=== PATIENT | female | born 1945 | race Caucasian/White ===

== ENCOUNTER → 2017-07-21 13:58 | Outpatient (CLI) | payer MEDICARE, OTHER ==
[2016-04-05 16:58] VITALS: BMI 29.1
[~2017-07-21 13:58] MED LIST: ASPIRIN EC81 M1 PO; BENADRYL25 MG PO; COLACE100 MG PO; DULCOLAX10 MG/SUPP RC; ELIQUIS2.5 MG PO; FERATE240 ( 27 ) OR; HYDROCODONE-APA1 TAB PO; LIPITOR10 MG PO; MIRALAX17 GM PO; MS CONTIN15 MG PO; OXYCODONE HCL5 MG PO; SENNA8.6 MG OR; SENNA8.6 MG PO; SENOKOT-S TABLE1 TAB PO; VITAMIN D250000 UNIT PO
== END | disposition home or self-care (01) ==
LOC: D.MRI 13:58
DX: M79.672 Pain in left foot (principal)

== ENCOUNTER 2017-12-28 06:01 | Outpatient (CLI) | payer MEDICARE, OTHER ==
[~2017-12-28] VITALS: Ht 167.6 cm; Wt 75.0 kg
--- NOTE | ~2017-12-28 | HEMODYNAMI ---
PATIENT:DAVIN NAGEL MEDICAL RECORD: [id number] : 49 LOCATION:[facility] ADMISSION DATE: 12/28/17 Generatedon:12/28/20178:25 Patient name: DAVIN NAGEL Patient #: [id number] SSN: : 1945 Date of study: 12/28/2017 Page: Of Hemodynamic Procedure Report Patient Data Patient Demographics Procedure consent was obtained First Name: DAVIN Gender: Female Last Name: SHONA : 1945 [facility] Initial: BETTIE Age: 72 year(s) Patient #: [id number] Race: Unknown Additional ID: [id number] Contact details [address]: [address] [place] [address] State: [place] City: [place] Zip code: [address] Past Medical History Allergies Allergen Reaction Date Comments Reported Other allergy 12/28/2017 doxycycline Statins 12/28/2017 Demerol 12/28/2017 Admission Admission Data Admission Date: 12/28/2017 Admission Time: 6:01 Procedure Procedure Types Cath Procedure Diagnostic Procedure LHC Coronaries only Aortic Root Angiography Sedation Charges Moderate Sedation up to 15 minutes Procedure Description Procedure Date Procedure Date: 12/28/2017 Procedure Start Time: 8:00 Procedure End Time: 8:23 Procedure Staff Name Function Elier East MD Performing Physician Shital Rice RT Monitor Arturo Oliver RN Nurse Cammie El RT Scrub Procedure Data Cath Procedure Fluoroscopy Diagnostic fluoroscopy Total fluoroscopy Time: 5.9 time: 5.9 min min Diagnostic fluoroscopy Total fluoroscopy dose: 707 dose: 707 mGy mGy Contrast Material Contrast Material Type Amount (ml) Isovue 370 99 Entry Location Entry Primary Successful Side Size Upsize Upsize Entry Closure Succes sful Closure Location (Fr) 1 (Fr) 2 (Fr) Remarks Device Remarks Femoral Right 5 Fr Exoseal artery Estimated blood loss: 5 ml Diagnostic catheters Device Type Used For End Catheter Placement MULTIPACK JL 4.0 5Fr Left Coronary catheter Angiography MULTIPACK 3DRC 5Fr Right Coronary catheter Angiography MULTIPACK Pigtail 5 Fr Aortic Root catheter Angiography DIAGNOSTIC AL 1 5Fr Procedure catheter ([id number]) Procedure Complications No complications Procedure Medications Medication Administration Route Dosage 0.9% NaCl I.V. 100 ml/hr Oxygen etCO2 Nasal cannula 2 l/min Heparin Flush Bag added to field 2 bags (1000units/500ml NS) Lidocaine 2% added to field 20 Versed I.V. 1 mg Fentanyl I.V. 50 mcg Benadryl I.V. 50 mg Versed I.V. 1 mg Fentanyl I.V. 50 mcg Versed I.V. 1 mg Hemodynamics Rest Heart Rate: 74 (bpm) Snapshots Pre Cath Intra NCS Post Cath Vital Signs Time Heart Resp SPO2 etCO2 NIBP (mmHg) Rhythm Pain Sedation Rate (ipm) (%) (mmHg) Status Level (bpm) 7:46:08 77 20 98 0 133/74(107) NSR 0 (11) 10(A) , No pain 7:50:50 74 12 93 33.6 136/66(87) NSR 0 (11) 10(A) , No pain 7:55:35 73 15 89 0 110/50(75) NSR 0 (11) 10(A) , No pain 8:00:14 71 14 98 36.6 111/53(81) NSR 0 (11) 10(A) , No pain 8:04:50 80 14 98 23.9 119/60(82) NSR 0 (11) 10(A) , No pain 8:09:29 81 14 96 38.1 118/61(88) NSR 0 (11) 9(A) , No pain 8:14:07 82 16 95 38.1 108/63(90) NSR 0 (11) 9(A) , No pain 8:18:44 98 15 99 36.6 115/67(91) NSR 0 (11) 9(A) , No pain 8:23:20 81 14 99 36.6 129/66(100) NSR 0 (11) 9(A) , No pain Medications Time Medication Route Dose Verified Delivered Reason Notes Effe ctiveness by by 7:51:22 0.9% NaCl I.V. 100 Arturo Arturo Per ml/hr Benito Oliver physician RN RN 7:51:31 Oxygen etCO2 2 Arturo Arturo Per Nasal l/min Lorigan Lorigan physician cannula RN RN 7:51:41 Heparin Flush added 2 Arturo Arturo used for Bag to bags Lorigan Lorigan procedure (1000units/500ml field RN RN NS) 7:51:52 Lidocaine 2% added 20ml Arturo Arturo for local to vial Lorigan Lorigan anesthetic field RN RN 7:52:04 Versed I.V. 1 mg Arturo Arturo for Lorigan Lorigan sedation RN RN 7:52:16 Fentanyl I.V. 50 Arturo Arturo for mcg Lorigan Lorigan sedation RN RN 7:52:26 Benadryl I.V. 50 mg Arturo Arturo Per Lorigan Lorigan physician RN RN 8:01:33 Versed I.V. 1 mg Arturo Arturo for Lorigan Lorigan sedation RN RN 8:01:38 Fentanyl I.V. 50 Arturo Arturo for mcg Lorigan Lorigan sedation RN RN 8:03:24 Versed I.V. 1 mg Arturo Arturo for Lorigan Lorigan sedation RN locomotive electrician Log Time Note 7:33:22 Time tracking: Regular hours (M-F 7:00 - 5:00) 7:33:26 Plan of Care:Hemodynamics will remain stable., Cardiac rhythm will remain stable., Comfort level will be maintained., Respiratory function will remain adequate., Patient/ family verbilizes understanding of procedure., Procedure tolerated without complication., Recovers from procedure without complications.. 7:33:29 Arturo Oliver RN sent for patient. Start room use. 7:39:10 Patient received from Pre/Post Procedure Room to CCL 1 Alert and oriented. Tansferred to table in Supine position. 7:39:11 Warm blankets applied, and lakhwinder hugger turned on for patient comfort. 7:39:12 Correct patient and procedure confirmed by team. 7:39:15 Signed procedure consent form obtained from patient. 7:39:15 ECG and BP/O2 sat monitors applied to patient. 7:39:16 Full Disclosure recording started 7:45:17 Vital chart was started 7:46:12 Rhythm: sinus rhythm 7:46:14 Baseline sample Acquired. 7:46:26 H&P Date Dictated: 12/19/2017 Within 30 days and on chart., H&P Addendum completed by physician on day of procedure. (MUST COMPLETE FOR ALL OUTPATIENTS). 7:46:27 Pre-procedure instructions explained to patient. 7:46:28 Pre-op teaching completed and patient verbalized understanding. 7:46:29 Family in patients room. 7:46:37 Patient NPO since Midnight. 7:46:53 Patient allergic to Other allergydoxycycline 7:46:59 Patient allergic to Statins 7:47:05 Patient allergic to Demerol 7:47:08 Is the patient allergic to Iodine/contrast media? No. 7:47:10 Is patient on blood thinner?No 7:47:13 Patient diabetic? No. 7:47:17 Previous problem with sedation/anesthesia? No ? 7:47:18 Snore? No 7:47:19 Sleep apnea? No 7:47:21 Deviated septum? No 7:47:22 Opens mouth fully? Yes 7:47:22 Sticks out tongue? Yes 7:47:24 Airway obstruction? No ? 7:47:25 Dentures? No ? 7:47:34 Pre procedure: right dorsailis pedis pulse 2+ Normal; easily identifiable; not easily obliterated 7:47:39 Pre procedure: right radial pulse 0-Absent 7:47:44 Patient pain scale 0/10 ?. 7:47:48 Lab results completed and on chart. 7:47:55 IV patent on arrival in right forearm with 0.9% NaCl at O. 7:47:57 Right groin area was prepped with chlora-prep and draped in sterile fashion 7:47:58 Alarms reviewed by R. N. 7:47:58 Sharps counted by scrub and verified by R.N. 7:48:01 Use device set Femoral Dx 7:48:02 ACIST Syringe (35102) opened to sterile field. 7:48:02 Bag Decanter (2002) opened to sterile field. 7:48:03 Medline Cath Pack ([id number]) opened to sterile field. 7:48:03 DIAGNOSTIC WIRE .035 260cm J wire (182461) opened to sterile field. 7:48:04 ACIST Hand Control (36766) opened to sterile field. 7:48:04 ACIST Manifold (60618) opened to sterile field. 7:48:05 DIAGNOSTIC Multipack 5Fr catheter set ([id number]) opened to sterile field. 7:48:06 Tegaderm 4 x 4 (1626W) opened to sterile field. 7:48:07 PERCUTANEOUS ENTRY 19GA needle opened to sterile field. 7:48:08 SHEATH Prelude 5Fr 0.035 ([id number]-9X-99-035) opened to sterile field. 7:49:42 Final Timeout: patient, procedure, and site verified with staff and physician. All members of the team are in agreement. 7:49:44 Right groin site verified by team. 7:49:48 Physical assessment completed. ASA score P 2 - A patient with mild systemic disease as per Elier East MD. 7:49:53 Sedation plan: IV Moderate Sedation Medication:Versed, Fentanyl 7:51:22 0.9% NaCl 100 ml/hr I.V. was administered by Arturo Oliver RN; Per physician; 7:51:31 Oxygen 2 l/min etCO2 Nasal cannula was administered by Arturo Oliver RN; Per physician; 7:51:41 Heparin Flush Bag (1000units/500ml NS) 2 bags added to field was administered by Arturo Oliver RN; used for procedure; 7:51:52 Lidocaine 2% 20ml vial added to field was administered by Arturo Oliver RN; for local anesthetic; 7:52:04 Versed 1 mg I.V. was administered by Arturo Oliver RN; for sedation; 7:52:16 Fentanyl 50 mcg I.V. was administered by Arturo Oliver RN; for sedation; 7:52:26 Benadryl 50 mg I.V. was administered by Arturo Oliver RN; Per physician; 7:54:20 Zero performed for pressure channel P1 8:00:28 Procedure started. 8:00:56 Local anesthetic to right femoral artery with Lidocaine 2% by Elier East MD.INITIAL ACCESS ONLY 8:01:33 Versed 1 mg I.V. was administered by Arturo Oliver RN; for sedation; 8:01:38 Fentanyl 50 mcg I.V. was administered by Arturo Oliver RN; for sedation; 8:03:24 Versed 1 mg I.V. was administered by Arturo Oliver RN; for sedation; 8:03:38 A 5 Fr sheath was inserted into the Right Femoral artery 8:04:19 A MULTIPACK JL 4.0 5Fr catheter was advanced over the wire and used for Left Coronary Angiography. 8:06:39 Catheter removed. 8:07:35 A MULTIPACK 3DRC 5Fr catheter was advanced over the wire and used for Right Coronary Angiography. 8:08:39 Catheter removed. 8:09:16 A MULTIPACK Pigtail 5 Fr catheter was advanced over the wire and used for Aortic Root Angiography. 8:10:12 Injector settings: Ml/sec: 15, Volume: 30, 8:14:12 BENTSON 260 wire ([id number]) opened to sterile field. 8:15:15 A DIAGNOSTIC AL 1 5Fr catheter ([id number]) was advanced over the wire and used for Procedure. to cross Aortic valve 8:15:27 Bentson wire advanced. 8:17:53 Catheter removed. 8:18:12 UNABLE TO CROSS VALVE 8:18:20 Sheath removed intact; hemostasis achieved with Exoseal to the Right Femoral artery. 8:18:21 Procedure ended.(Physican Out) 8:18:33 Fluoroscopy time 05.90 minutes. 8:18:37 Fluoroscopy dose: 707 mGy 8:18:37 Flurop Dose total: 707 8:18:40 Contrast amount:Isovue 370 99ml. 8:18:42 Sharps counted by scrub and verified by R.N. 8:18:45 Insertion/operative site no bleeding no hematoma. 8:18:48 Post-op/insertion site Right Femoral artery dressed using a 4 x 4 and Tegaderm. 8:18:51 Post right femoral artery:stable, clean and dry 8:18:53 Post Procedure Pulses reassessed and unchanged 8:18:55 Post-procedure physical assessment completed. ASA score P 2 - A patient with mild systemic disease as per Elier East MD. 8:18:57 Post procedure rhythm: unchanged. 8:19:00 Estimated blood loss: 5 ml 8:19:02 Post procedure instruction explained to patient.Patient verbalizes understanding. 8:19:02 Patient needs reinforcement of post procedure teaching. 8:19:51 Procedure type changed to Cath procedure, Diagnostic procedure, LHC, Coronaries only, Aortic Root Angiography, Sedation Charges, Moderate Sedation up to 15 minutes 8:20:00 Procedure Complication : No complications 8:20:01 See physician's report for complete and final results. 8:20:06 EXOSEAL 5Fr (EX500) opened to sterile field. 8:22:52 Procedure and supply charges have been captured, reviewed, submitted and are correct. 8:22:53 Vital chart was stopped 8:22:55 Report given to Pre/Post Procedure Room. 8:22:58 Patient transfered to Pre/Post Procedure Room with Stretcher. 8:23:05 Procedure ended. 8:23:05 Full Disclosure recording stopped 8:23:08 End room use (Document Last) Device Usage Item Name Manufacture Quantity Catalog Number Hospital Part Current M inimal Lot# / Charge Number Stock Stock Serial# Code ACIST Syringe Acist 1 12722 371848 344605 701282 2 0 (50818) Medical Systems One-Song Bag Decanter Microtek 1 2001S 489300 21343 173624 5 () Medical Inc. Medline Cath Cardinal 1 [id number] 087338 86661 612060 5 Pack Health ([id number]) DIAGNOSTIC WIRE [place] 1 488810 673848 624914 803606 3 0 .035 260cm J wire (327405) ACIST Hand Acist 1 28627 962806 577277 553604 5 Control (22196) Medical Systems Inc ACIST Manifold Acist 1 35671 025981 944995 872993 5 (81950) Medical Systems Inc DIAGNOSTIC Cardinal 1 MS5228 029013 69451 716028 3 0 Multipack 5Fr Health catheter set (MZ8914) Tegaderm 4 x 4 3M 1 1626W 030616 062058 673716 5 (1626W) PERCUTANEOUS Cook Medical 1 W66945 205650 514351 5 ENTRY 19GA needle SHEATH Prelude Merit 1 BNK-0K-25-035 387872 730440 781311 5 5Fr 0.035 Medical (VZO-7E-05-035) MULTIPACK JL Cardinal 1 354266 5 4.0 5Fr Health catheter MULTIPACK 3DRC Cardinal 1 605732 5 5Fr catheter Health MULTIPACK Cardinal 1 245608 5 Pigtail 5 Fr Health catheter BENTSON 260 Cook Medical 1 K91553 730278 412819 906169 5 wire (S00023) DIAGNOSTIC AL 1 Cardinal 1 [id number] 706133 199604 500461 1 5 5Fr catheter Health (638703Q) EXOSEAL 5Fr Cardinal 1 EX500 156504 460702 935661 1 0 (EX500) Health Signature Audit Converse Stage Time Signature Unsigned Intra-Procedure 12/28/2017 Shital 8:25:15 AM Counts RT(R) Signatures Monitor : Shital Signature : Counts RT Date : Time : [address] [place] [address]
[2017-12-28 06:27] VITALS: BP 135/81; Ht 167.6 cm; Wt 75.0 kg
[2017-12-28 06:46] LABS: BASOPHILS 0.9 % (0-2); EOSINOPHILS 3.6 % (0-7); HEMATOCRIT 42.7 % (36.0-48.0); HEMOGLOBIN 14.5 g/dL (12-16); LYMPHOCYTES 20.5 % (15-50); MCH 30.7 pg (26.0-34.0); MCV 90.3 fL (80.0-100.0); MEAN PLATELET VOLUME 12.4 fL (7.4-10.4); MONOCYTES 8.3 % (2-11); NEUTROPHILS 66.7 % (40-80); RBC 4.73 10x6/uL (4.00-5.40); WBC 5.8 10x3/uL (4.8-10.8)
[2017-12-28 06:49] LABS: PLATELET COUNT 190 10x3/uL (130-400)
[2017-12-28 06:59] LABS: CALC OSMOLALITY 284 mosm/kg (275-300); CARBON DIOXIDE 25.3 mmol/L (21.0-32.0); CHLORIDE - SERUM 106 mmol/L (98-107); CREATININE - SERUM 0.8 mg/dL (0.6-1.3); GLUCOSE 107 mg/dL (74-106); POTASSIUM - SERUM 4.1 mmol/L (3.5-5.1); SODIUM 141 mmol/L (136-145); UREA NITROGEN 24 mg/dL (7-18); eGFR NON AFRICAN AMERICAN 75 mL/min (90-120)
== END 2017-12-28 11:05 | disposition home or self-care (01) ==
LOC: D.CATH 06:01
PROVIDERS: Internal Medicine Cardiovascular Disease
DX: I35.0 Nonrheumatic aortic (valve) stenosis (principal)

== ENCOUNTER 2018-01-09 05:00 | Inpatient (IN) | payer MEDICARE, OTHER ==
[2018-01-05 09:35] LABS: BASOPHILS 0.6 % (0-2); EOSINOPHILS 2.7 % (0-7); HEMATOCRIT 42.6 % (36.0-48.0); HEMOGLOBIN 14.6 g/dL (12-16); IMMATURE GRANULOCYTES 0.1 % (0-5); LYMPHOCYTES 20.3 % (15-50); MCH 30.5 pg (26.0-34.0); MCHC 34.3 g/dL (31.0-37.0); MCV 89.1 fL (80.0-100.0); MEAN PLATELET VOLUME 12.3 fL (7.4-10.4); MONOCYTES 6.2 % (2-11); NEUTROPHILS 70.1 % (40-80); PLATELET COUNT 212 10x3/uL (130-400); RBC 4.78 10x6/uL (4.00-5.40); RDW 13.7 % (11.5-14.5); WBC 6.9 10x3/uL (4.8-10.8)
[2018-01-05 09:45] LABS: APPEARANCE CLEAR (CLEAR); APTT 31.1 SECONDS (22.8-39.4); BILIRUBIN NEGATIVE (NEGATIVE); COLOR YELLOW (YELLOW); GLUCOSE NEGATIVE (NEGATIVE); INR 0.99 (0.85-1.17); KETONE NEGATIVE (NEGATIVE); NITRITE NEGATIVE (NEGATIVE); PROTEIN NEGATIVE (NEGATIVE); PROTIME 12.7 SECONDS (11.6-15.0); SPECIFIC GRAVITY 1.015 (1.005-1.020); UROBILINOGEN NORMAL (NORMAL)
[2018-01-05 10:16] LABS: ALBUMIN 3.8 g/dL (3.4-5.0); ALKALINE PHOSPHATASE 128 U/L (46-116); ALT (SGPT) 21 U/L (10-68); BILIRUBIN - TOTAL 0.34 mg/dL (0.2-1.3); CALC OSMOLALITY 279 mosm/kg (275-300); CALCIUM 9.5 mg/dL (8.5-10.1); CARBON DIOXIDE 31.9 mmol/L (21.0-32.0); CHLORIDE - SERUM 103 mmol/L (98-107); CHOLESTEROL, TOTAL 224 mg/dL (0-200); CREATININE - SERUM 0.8 mg/dL (0.6-1.3); GLUCOSE 101 mg/dL (74-106); PHOSPHOROUS 4.4 mg/dL (2.5-4.9); POTASSIUM - SERUM 3.8 mmol/L (3.5-5.1); PROTEIN - SERUM 8.4 g/dL (6.4-8.2); SODIUM 140 mmol/L (136-145); T4 THYROXIN - FREE 0.88 ng/dL (0.76-1.46); THYROID STIMULATING HORMONE 2.01 uIU/mL (0.36-3.74); UREA NITROGEN 16 mg/dL (7-18); URIC ACID 3.9 mg/dL (2.6-7.2); eGFR NON AFRICAN AMERICAN 75 mL/min (90-120)
[2018-01-09] VITALS (52 sets, daily range): BP systolic 83–128; BP diastolic 29–73; BMI 26.7; BMI 29.1
[~2018-01-09] VITALS: Ht 167.6 cm; Wt 79.5 kg
--- NOTE | ~2018-01-09 | HP ---
PATIENT: DAVIN NAGEL MEDICAL RECORD: [id number] ACCOUNT: [id number] LOCATION:[facility] : 49 ADMISSION DATE: 01/09/18 HISTORY AND PHYSICAL EXAMINATION DAVIN Ledezma (72yo, F) ID# [id number]. Date/Time01/03/2018 10:63FBTKP67/1948[facility] Dept.[facility] ClinicProviderGATITO YU MDInsuranceMed Primary: [place] Insurance # : [id number] PCP : ARLETTE BECERRA Referring Provider Name : ARLETTE BECERRA Employer Name : RETIRED Med Secondary: CYNDIE (MEDICARE SUPPLEMENT) Insurance # : [id number] Policy/Group # : PLAN G Referring Provider Name : ARLETTE BECERRA Employer Name : RETIRED Prescription: CMX - Member is eligible. Chief Complaint Aortic insufficiency AORTIC STENOSIS Patient's Care Team Primary Care Provider (): ARLETTE BECERRA: [address] [place] [address], , Referring Provider (): ARLETTE BECERRA: [address] [place] [address], , Patient's Pharmacies [facility] [id number] (ERX): [address] [place] [address], , Vitals BP:142/82 sitting R arm 01/03/2018 11:00 amHR:84/MURMUR 01/03/2018 11:01 amHt:5 ft 6 in 01/03/2018 10:59 amWt:169.8 lbs 01/03/2018 10:59 amBMI:27.4 01/03/2018 10:59 amAllergies Reviewed Allergies [id number]-SEP REDUCTASE INHIBITORSMedications Reviewed Medications HYDROcodone 5 mg-acetaminophen 325 mg mpmtae33/27/18 filledCaremarkVaccines Reviewed Vaccines Vaccine TypeDateAmt.RouteSiteLot #Mfr.Exp. DateDate on VISVIS GivenVaccinatorInfluenzainfluenza, high dose [id number] toxoid, nnnkcfjg0035tqa 2012 Problems Reviewed Problems Obstructive sleep apnea syndrome Aortic valve stenosis - Onset: 01/02/2018 Deep venous thrombosis of lower extremity Allergic rhinitis Asthma Chronic obstructive lung disease Gastroesophageal reflux disease Osteoarthritis of hip HISTORY AND PHYSICAL [id number] NAGELDAVIN Reid BETTIE Osteoarthritis of knee Hip pain Knee pain Heterotopic ossification of joint Lumbar spondylosis with myelopathy Bursitis of hip Degenerative spondylolisthesis Dyspnea Cough Fracture of neck of femur Pain in left foot Family History Reviewed Family History Father- Heart disease (onset age: 40) ( age: 65) - HTN, Hyperlipidemia, CHF, Cerebral aneurysm, SCDMother- Heart disease (onset age: 60) ( age: 76) - asthma, COPD - Arthritis ( age: 76)Brother- Problem - BONE CANCER, Heart diseaseBrother- Diabetes mellitus - Heart diseaseSocial History Reviewed Social History Cardiology Family history of heart disease?: Y Smoking Status: Former smoker Non-smoker High Cholesterol: N High blood pressure: N Exercise level: Occasional Overweight: Y Obese: N Diabetes: N Alcohol intake: None 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 HPI Dyspnea Reported by patient. Quality: dyspnea; tightness; can't get a deep breath Severity: moderate Duration: for 6 months Onset/Timing: daily; weekly; at night Context: with activity Alleviating Factors: rest Aggravating Factors: activity; when supine Associated Symptoms: no chest pain Notes: " SHORTNESS OF BREATH WHEN I TALK TOO MUCH" Fatigue Reported by patient. Quality: continuous Severity: normal sleep patterns; mild Duration: constant Timing: worse; gradual; "STARTED SIX MONTHS AGO" Context: symptoms do not improve on weekends/vacations Modifying Factors: no new stressors in life 72-year-old female with history of aortic stenosis, followed with echocardiograms. Over the past year the peak velocity has increased from about 40 to approximately 80 with valve area diminished to 0.5. The patient had a history of chronic fatigue but more recently has chest pressure that may occur at rest is not associated with syncope or near syncope, palpitations, and no dyspnea Heart catheterization negative for coronary disease ROS Additionally reports: as reviewed in the chart with the patient, specific negatives of new bleeding disorder, bruising; no history of CVA or TIA ROS as noted in the HPI Physical Exam Patient is a 72-year-old female. Constitutional: General Appearance well nourished and developed and healthy-appearing. Level of Distress NAD. Ambulation ambulating normally. Cardiovascular: Apical Impulse not displaced or no thrill. Heart Auscultation RRR; 3/6 holosystolic murmur at the left sternal border. Arterial Pulses 2+ bilateral, carotid 2+ bilateral, and dorsalis pedis 2+ bilateral. Edema no edema or varicosities. Lungs: Repiratory Effort no dyspnea. Percussion no hyperresonance or dullness or flatness. Auscultation no wheezing, rhonchi, or rales / crackles and breathing sounds normal, good air movement, and CTA except as noted. Abdomen: Bowl Sounds normal. Inspection and Palpation no tenderness, guarding, masses, or rebound tenderness and soft and non-distended. Liver non-tender and no HISTORY AND PHYSICAL [id number] [facility] hepatomegaly. Spleen non-tender and no splenomegaly. Hernia none palpable. Musculoskeletal System: Gait And Stance normal gait and stance. Digits and Nails normal nails and no cyanosis. Neurologic: Cranial Nerves grossly intact. Reflexes DTRs 2+ bilaterally throughout. Sensation grossly intact. Lymph Nodes: Lymph Nodes no cervical LAD, supraclavicular LAD, axillary LAD, or inguinal LAD. Eyes: Lids and Conjunctivae no discharge or pallor and non-injected. Pupils PERRLA. Cornea grossly intact. EOM EOMI. Lens clear. Sclera non-icteric. Neck: Neck no masses, enlarged lymph nodes, or carotid bruits and supple and trachea midline. Thyroid no enlargement or nodules and non-tender. Skin: Inspection and Palpation no rash, lesions, ulcers, jaundice, or abnormal nevi. Assessment / Plan 1. Aortic valve stenosis I35.0: Nonrheumatic aortic (valve) stenosis AORTIC VALVE STENOSIS: CARE INSTRUCTIONS Discussion Notes we discussed the echocardiogram findings, the increase in symptoms, the risk of sudden or heart attack, and the surgical options including valve choices. We discussed the risk of surgery including but not limited to bleeding, transfusio n, infection, reoperation, restenosis, heart attack, stroke, and she gives consent for surgery. GATITO YU MD at 0835 CC: [id number] DICTATION DATE: 01/03/18 1020 MANAGER HEART FAILURE: CORNEL 01/05/18 1503 PRE IN [facility] [address] [place] [address]
--- NOTE | ~2018-01-09 | OP ---
PATIENT NAME: DAVIN NAGEL MEDICAL RECORD: [id number] :49 LOCATION:[facility] ADMISSION DATE:01/09/18 SURGEON: RAPHAEL YU MD DATE OF OPERATION: 01/09/2018 SURGEON: Raphael Yu MD SHOWER ENCLOSURE INSTALLER: ZENY Hathaway OPERATION PERFORMED: Aortic valve replacement, 21 mm Harper pericardial tissue heart valve. PREOPERATIVE DIAGNOSIS: Aortic stenosis. POSTOPERATIVE DIAGNOSIS: Aortic stenosis. ANESTHESIA: General endotracheal anesthesia. ESTIMATED BLOOD LOSS: Total cardiopulmonary bypass with Cell Saver retransfusion. SPECIMENS: Aortic valve leaflets. COMPLICATIONS: None. CONDITION: Stable. DISPOSITION: CV ICU. OPERATIVE FINDINGS: 1. Calcified aortic leaflets with essentially fusion of the left and right coronary cusp and severe annular calcification extending down on to the septum. 2. Transesophageal echocardiography revealed no perivalvular leak after replacement. OPERATIVE INDICATION: Aortic stenosis, symptomatic. PROCEDURE IN DETAIL: The patient was brought to the operative suite. General anesthesia was obtained. The patient was prepped and draped. Vertical median sternotomy incision was made. Subcutaneous tissue was divided with electrocautery. Sternum was divided with a saw. Heparin was given. Pericardium was opened. Aorta was cannulated. Dual stage venous cannula was inserted. The patient was placed on cardiopulmonary bypass after activated clotting time was appropriately elevated. Retrograde cardioplegia cannula was inserted. The patient was cooled. Crossclamp was placed. Cardioplegia was given antegrade through an angiocatheter and then retrograde. Left ventricular vent was placed through the opening in the right superior pulmonary vein. Transverse aortotomy was performed. The valve was visualized and debrided thoroughly. Thorough irrigation was undertaken and the left main was protected. The valve was sized to 21 mm. Pledgeted sutures were placed from ventricular to aortic side, through the valve sewing ring, the valve was carefully lowered into place and sutures were tied. There was no apparent leak. Looking through the valve, there was no subvalvular obstruction. The patient was rewarmed. The aortotomy was closed. With the patient in steep Trendelenburg position, the left ventricular apex was de-aired and using transesophageal echocardiography OPERATIVE REPORT [id number] DAVIN NAGELYAQUELIN assisting the deairing, the crossclamp was then removed. Aortic de-airing/cardioplegia site was oversewn. The patient resumed a spontaneous rhythm, fully rewarmed, weaned cardiopulmonary bypass and stable. The patient was decannulated. The cannula sites were oversewn. Protamine was given. Thorough irrigation was undertaken. A drain was placed in mediastinum and right pleural cavity. The patient was stable. The sternum was closed with wires. Fascia was closed. Subcutaneous tissue was closed. Skin was closed. Dermabond was placed. The needle and sponge counts were reported as correct and the patient was taken to the ICU in stable condition. TRANSINT:[id number] Voice Confirmation ID: [id number] DOCUMENT ID: [id number] RAPHAEL YU MD at 1727 CC: MOOSE CARLSON M.D. [id number] DICTATION DATE: 01/09/18 1236 LICENSED OPTICAL DISPENSER: 01/09/18 1345 ADM IN [facility] [address] [place] [address]
--- NOTE | ~2018-01-09 | CN ---
PATIENT NAME:DAVIN GRANADOS MEDICAL RECORD: [id number] : 49 LOCATION:[id number] ADMIT DATE: 01/09/18 ACCOUNT: [id number] CONSULTING PHYSICIAN: SANDHYA RODRIGUEZ MD REFERRING PHYSICIAN: GATITO YU MD DATE OF CONSULTATION: 01/12/2018 DIAGNOSES: 1. Status post aortic valve replacement. 2. Aortic stenosis. 3. Pulmonary edema. 4. Anemia. HISTORY OF PRESENT ILLNESS: Ms. Granados presents with symptomatic aortic stenosis, underwent aortic valve replacement. She is now postop day #2. She has developed mild pulmonary edema as well as hemoglobin of 8.1. She is being transfused. PHYSICAL EXAMINATION: GENERAL APPEARANCE: Well-nourished, well-developed, appears stated age. Level of distress, comfortable. PSYCHIATRIC: Mental status, alert, normal affect. Orientation, oriented to time, place and person. EYES: Lids and conjunctiva, noninjected. No discharge, no pallor. ENT: Lips, teeth, gums, normal dentition. Oropharynx, no cyanosis, no pallor. NECK: Carotid arteries, bilateral normal upstroke, no bruits, no thrills. JUGULAR VEINS: No jugular venous pressure or distention. CERVICAL LYMPH NODES: Nontender, nonenlarged. THYROID: Not enlarged. Nontender. No nodules. LUNGS: Respiratory effort, unlabored. CHEST: Normal curvature. No thoracic deformity. No chest wall tenderness. Percussion, resonant. Auscultation, clear. No wheezes, no rales, no rhonchi. CARDIOVASCULAR: Precordial exam, nondisplaced. No heaves or pericardial thrills. Rate and rhythm, regular. Heart sounds, normal S1, normal S2. No S3, no gallop, no rub. Systolic murmur, not heard. Diastolic murmur, not heard. EXTREMITIES: No cyanosis, no edema. Peripheral pulses, full and equal in all extremities, except as noted. No bruits appreciated. ABDOMEN: Soft, nondistended. Normal aorta. No bruit. Nontender. No masses. Liver, nontender, no hepatomegaly. Spleen, nontender, no splenomegaly. MUSCULOSKELETAL: No joint tenderness. No joint swelling. No erythema. NEUROLOGICAL: Normal gait, normal strength, normal tone. SKIN: Warm and dry. OVERALL IMPRESSION: Pulmonary edema in the postop phase. At this time, we will transfuse for the anemia secondary to blood loss. Continue or increase IV Lasix for the pulmonary edema, stable cardiac. TRANSINT:[id number] Voice Confirmation ID: [id number] DOCUMENT ID: [id number] CONSULT REPORT [id number] DAVIN GRANADOS JEFFREY MD at 1403 CC: [id number] DICTATION DATE: 01/12/18 1233 DUPLICATOR PUNCH OPERATOR: 01/12/18 1243 DIS IN 01/19/18 [place] [id number] [place] [address]
--- NOTE | ~2018-01-09 | OP ---
PATIENT NAME: DAVIN NAGEL MEDICAL RECORD: [id number] :49 LOCATION:[facility] ADMISSION DATE:01/09/18 SURGEON: GATITO YU MD DATE OF OPERATION: 01/12/2018 SURGEON: Gatito Yu MD PROCEDURE PERFORMED: Right ultrasound-guided thoracentesis. PROCEDURE NOTE: With the patient seated upright in the intensive care unit with a heart rate, blood pressure, and pulse oximetry monitor, the ultrasound was used to localize an area below the tip of the right scapula. Posterior chest was prepped. A small needle was used to aspirate and identify the effusion and local anesthetic was instilled. A 2 mm skin incision was made. The pigtail catheter was inserted and a total of 800 cc of serosanguineous fluid was removed. There was a small amount of residual fluid. The patient was stable after the procedure. TRANSINT:[id number] Voice Confirmation ID: [id number] DOCUMENT ID: [id number] GATITO YU MD at 0822 CC: [id number] DICTATION DATE: 01/12/18 1820 MEDICAL DOSIMETRIST: 01/13/18 0049 ADM IN [facility] [address] [place] [address]
--- NOTE | ~2018-01-09 | TEE ---
PATIENT:DAVIN NAGEL MEDICAL RECORD: [id number] LOCATION:[place] [address] AGE OF PATIENT: 72 ADMISSION DATE: 01/09/18 SEX: F REFERRING PHYSICIAN: INTERPRETING PHYSICIAN: SANDHYA RODRIGUEZ MD TRANSESOPHAGEAL ECHOCARDIOGRAM Date: 01/09/18 FELI CHARGE Y INDICATIONS: AVR PREMEDICATIONS: PATIENT'S RESPONSE PROCEDURE DOPPLER MEASUREMENTS: LVIT LA PA RA LVOT RVOT Asc. Ao AV Gradient Peak AV Mean AV Area MV Gradient Peak MV Mean MV Area INTERPRETATION: Doppler: 2-D: EF 60%, SEVERVE COLOR FLOW DOPPLER TRACE MR, MILD AI NORMAL SALINE STUDY: MISCELLANOUS: DIAGNOSIS: PLAN: Bleaching Supervisor:Larissa [employer] Interior Designer: Larissa DEGROOT COMMENTS: AIMEE DATE OF SERVICE: 01/09/2018 Transesophageal Echocardiogram FINDINGS: 1. Left ventricular chamber size is within normal limits. Left ventricular systolic function is normal. Overall ejection fraction estimated at 60%. 2. Left atrium, right atrium, and right ventricle chamber sizes are within normal limits. TRANSESOPHAGEAL ECHOCARDIOGRAM REPORT [id number] DAVIN NAGEL 3. Valvular structures: Aortic valve demonstrates severe aortic stenosis; however, this is not a new finding. The patient is scheduled for aortic valve replacement. The remaining valvular structures have normal structure and motion. 4. Doppler interrogation elsewise reveals trace mitral regurgitation and mild aortic insufficiency. No other valvular insufficiency or stenosis. 5. No evidence of pericardial effusion or left ventricular thrombus. TRANSINT:[id number] Voice Confirmation ID: [id number] DOCUMENT ID: [id number] at 1711 CC: [id number] DICTATION DATE: 01/09/182112 CLOTHING SALES ASSISTANT: 01/10/18224 ADM IN [facility] [address] [place] [address]
[2018-01-09 10:58] LABS: HEMATOCRIT 31.5 % (36.0-48.0); HEMOGLOBIN 10.7 g/dL (12-16); MCH 30.1 pg (26.0-34.0); MCV 88.5 fL (80.0-100.0); MEAN PLATELET VOLUME 12.3 fL (7.4-10.4); RBC 3.56 10x6/uL (4.00-5.40); RDW 13.5 % (11.5-14.5); WBC 13.2 10x3/uL (4.8-10.8)
[2018-01-09 11:39] LABS: CALC OSMOLALITY 291 mosm/kg (275-300); CALCIUM 7.7 mg/dL (8.5-10.1); CARBON DIOXIDE 24.5 mmol/L (21.0-32.0); CHLORIDE - SERUM 111 mmol/L (98-107); CREATININE - SERUM 0.7 mg/dL (0.6-1.3); GLUCOSE 147 mg/dL (74-106); POTASSIUM - SERUM 4.5 mmol/L (3.5-5.1); SODIUM 145 mmol/L (136-145); UREA NITROGEN 13 mg/dL (7-18); eGFR NON AFRICAN AMERICAN 88 mL/min (90-120)
[2018-01-09 11:56] LABS: APTT 41.2 SECONDS (22.8-39.4); INR 1.47 (0.85-1.17); PROTIME 17.3 SECONDS (11.6-15.0)
[2018-01-10] VITALS (58 sets, daily range): BP systolic 85–126; BP diastolic 32–73; Ht 167.6 cm; Wt 79.5 kg
[2018-01-10 06:15] LABS: HEMOGLOBIN 10.3 g/dL (12-16); MCH 28.8 pg (26.0-34.0); MCHC 34.3 g/dL (31.0-37.0); MEAN PLATELET VOLUME 12.5 fL (7.4-10.4); RBC 3.58 10x6/uL (4.00-5.40); RDW 17.2 % (11.5-14.5); WBC 13.6 10x3/uL (4.8-10.8)
[2018-01-10 06:35] LABS: MCV 83.8 fL (80.0-100.0); PLATELET COUNT 77 10x3/uL (130-400)
[2018-01-10 06:43] LABS: ALBUMIN 2.2 g/dL (3.4-5.0); ANION GAP 15.9 mmol/L (8-16); BILIRUBIN - TOTAL 0.41 mg/dL (0.2-1.3); CALCIUM 7.3 mg/dL (8.5-10.1); CARBON DIOXIDE 27.9 mmol/L (21.0-32.0); PROTEIN - SERUM 4.7 g/dL (6.4-8.2)
[2018-01-10 06:47] LABS: CREATININE - SERUM 1.3 mg/dL (0.6-1.3); POTASSIUM - SERUM 3.8 mmol/L (3.5-5.1)
[2018-01-10 08:02] LABS: PLATELET ESTIMATE DECREASED
[2018-01-11] VITALS (24 sets, daily range): BP systolic 91–122; BP diastolic 33–50
[2018-01-11 05:36] LABS: MCH 28.6 pg (26.0-34.0); MCHC 34.1 g/dL (31.0-37.0); MEAN PLATELET VOLUME 13.5 fL (7.4-10.4); RDW 16.6 % (11.5-14.5)
[2018-01-11 05:53] LABS: HEMOGLOBIN 7.5 g/dL (12-16); RBC 2.62 10x6/uL (4.00-5.40); WBC 17.7 10x3/uL (4.8-10.8)
[2018-01-11 06:02] LABS: ALBUMIN 1.9 g/dL (3.4-5.0); ANION GAP 9.6 mmol/L (8-16); BILIRUBIN - TOTAL 0.39 mg/dL (0.2-1.3); CALCIUM 7.4 mg/dL (8.5-10.1); CARBON DIOXIDE 31.1 mmol/L (21.0-32.0); CREATININE - SERUM 1.1 mg/dL (0.6-1.3); POTASSIUM - SERUM 3.7 mmol/L (3.5-5.1); PROTEIN - SERUM 4.7 g/dL (6.4-8.2)
[2018-01-11 06:24] LABS: BASOPHILS 0.1 % (0-2); EOSINOPHILS 0.1 % (0-7); HEMATOCRIT 21.6 % (36.0-48.0); IMMATURE GRANULOCYTES 0.4 % (0-5); LYMPHOCYTES 7.2 % (15-50); MCH 28.5 pg (26.0-34.0); MCHC 33.8 g/dL (31.0-37.0); MCV 84.4 fL (80.0-100.0); MEAN PLATELET VOLUME 12.3 fL (7.4-10.4); MONOCYTES 6.8 % (2-11); NEUTROPHILS 85.4 % (40-80); PLATELET COUNT 54 10x3/uL (130-400); RBC 2.56 10x6/uL (4.00-5.40); RDW 16.7 % (11.5-14.5); WBC 17.5 10x3/uL (4.8-10.8)
[2018-01-11 06:34] LABS: HEMOGLOBIN 7.3 g/dL (12-16)
[2018-01-12] VITALS (24 sets, daily range): BP systolic 95–121; BP diastolic 36–60
[2018-01-12 05:49] LABS: HEMATOCRIT 25.1 % (36.0-48.0); HEMOGLOBIN 8.3 g/dL (12-16); MCH 28.8 pg (26.0-34.0); MCHC 33.1 g/dL (31.0-37.0); MEAN PLATELET VOLUME 13.7 fL (7.4-10.4); RBC 2.88 10x6/uL (4.00-5.40); RDW 15.6 % (11.5-14.5)
[2018-01-12 05:53] LABS: MCV 87.2 fL (80.0-100.0)
[2018-01-12 06:30] LABS: ANION GAP 9.6 mmol/L (8-16); BILIRUBIN - TOTAL 0.4 mg/dL (0.2-1.3); CALCIUM 7.7 mg/dL (8.5-10.1); CARBON DIOXIDE 32.3 mmol/L (21.0-32.0); CREATININE - SERUM 0.9 mg/dL (0.6-1.3); POTASSIUM - SERUM 3.9 mmol/L (3.5-5.1); PROTEIN - SERUM 5.4 g/dL (6.4-8.2)
[2018-01-13] VITALS (24 sets, daily range): BP systolic 92–140; BP diastolic 38–57
[2018-01-13 06:37] LABS: HEMATOCRIT 23.3 % (36.0-48.0); HEMOGLOBIN 7.7 g/dL (12-16); MCH 29.6 pg (26.0-34.0); MEAN PLATELET VOLUME 11.9 fL (7.4-10.4); RBC 2.6 10x6/uL (4.00-5.40); RDW 15.6 % (11.5-14.5)
[2018-01-13 06:38] LABS: MCV 89.6 fL (80.0-100.0); WBC 11.4 10x3/uL (4.8-10.8)
[2018-01-13 06:53] LABS: ALBUMIN 1.9 g/dL (3.4-5.0); ALKALINE PHOSPHATASE 75 U/L (46-116); ALT (SGPT) 17 U/L (10-68); BILIRUBIN - TOTAL 0.47 mg/dL (0.2-1.3); CALC OSMOLALITY 275 mosm/kg (275-300); CALCIUM 7.8 mg/dL (8.5-10.1); CARBON DIOXIDE 32.7 mmol/L (21.0-32.0); CHLORIDE - SERUM 100 mmol/L (98-107); CREATININE - SERUM 0.8 mg/dL (0.6-1.3); GLUCOSE 125 mg/dL (74-106); POTASSIUM - SERUM 3.8 mmol/L (3.5-5.1); PROTEIN - SERUM 5.6 g/dL (6.4-8.2); SODIUM 136 mmol/L (136-145); eGFR NON AFRICAN AMERICAN 75 mL/min (90-120)
[2018-01-13 06:56] LABS: UREA NITROGEN 20 mg/dL (7-18)
[2018-01-14] VITALS (24 sets, daily range): BP systolic 97–133; BP diastolic 44–66
[2018-01-14 04:18] LABS: HEMATOCRIT 24.2 % (36.0-48.0); HEMOGLOBIN 7.9 g/dL (12-16); MCH 29.9 pg (26.0-34.0); MCHC 32.6 g/dL (31.0-37.0); MEAN PLATELET VOLUME 11.3 fL (7.4-10.4); RBC 2.64 10x6/uL (4.00-5.40); RDW 15.7 % (11.5-14.5)
[2018-01-14 04:30] LABS: MCV 91.7 fL (80.0-100.0)
[2018-01-14 04:44] LABS: ALBUMIN 1.9 g/dL (3.4-5.0); ALKALINE PHOSPHATASE 81 U/L (46-116); ALT (SGPT) 17 U/L (10-68); CALC OSMOLALITY 279 mosm/kg (275-300); CALCIUM 8.1 mg/dL (8.5-10.1); CARBON DIOXIDE 33.7 mmol/L (21.0-32.0); CHLORIDE - SERUM 102 mmol/L (98-107); CREATININE - SERUM 0.8 mg/dL (0.6-1.3); GLUCOSE 105 mg/dL (74-106); POTASSIUM - SERUM 3.8 mmol/L (3.5-5.1); PROTEIN - SERUM 5.8 g/dL (6.4-8.2); SODIUM 140 mmol/L (136-145); UREA NITROGEN 15 mg/dL (7-18); eGFR NON AFRICAN AMERICAN 75 mL/min (90-120)
[2018-01-15] VITALS (25 sets, daily range): BP systolic 100–131; BP diastolic 35–67
[2018-01-15 06:25] LABS: HEMOGLOBIN 7.9 g/dL (12-16); MCHC 31.6 g/dL (31.0-37.0); MCV 91.9 fL (80.0-100.0); MEAN PLATELET VOLUME 10.9 fL (7.4-10.4); RBC 2.72 10x6/uL (4.00-5.40); RDW 15.8 % (11.5-14.5); WBC 9.1 10x3/uL (4.8-10.8)
[2018-01-15 07:13] LABS: ALKALINE PHOSPHATASE 84 U/L (46-116); ALT (SGPT) 17 U/L (10-68); BILIRUBIN - TOTAL 0.53 mg/dL (0.2-1.3); CALCIUM 8.5 mg/dL (8.5-10.1); CARBON DIOXIDE 30.7 mmol/L (21.0-32.0); CHLORIDE - SERUM 104 mmol/L (98-107); CREATININE - SERUM 0.7 mg/dL (0.6-1.3); GLUCOSE 124 mg/dL (74-106); POTASSIUM - SERUM 3.7 mmol/L (3.5-5.1); SODIUM 140 mmol/L (136-145); eGFR NON AFRICAN AMERICAN 88 mL/min (90-120)
[2018-01-15 07:24] LABS: CALC OSMOLALITY 278 mosm/kg (275-300); UREA NITROGEN 10 mg/dL (7-18)
[2018-01-16] VITALS (26 sets, daily range): BP systolic 94–131; BP diastolic 40–59
[2018-01-16 06:21] LABS: HEMATOCRIT 27.4 % (36.0-48.0); HEMOGLOBIN 8.6 g/dL (12-16); MCH 28.8 pg (26.0-34.0); MCHC 31.4 g/dL (31.0-37.0); MCV 91.6 fL (80.0-100.0); MEAN PLATELET VOLUME 10.5 fL (7.4-10.4); RBC 2.99 10x6/uL (4.00-5.40); RDW 15.8 % (11.5-14.5); WBC 11.2 10x3/uL (4.8-10.8)
[2018-01-16 06:48] LABS: CALC OSMOLALITY 278 mosm/kg (275-300); CALCIUM 8.2 mg/dL (8.5-10.1); CARBON DIOXIDE 29.3 mmol/L (21.0-32.0); CHLORIDE - SERUM 104 mmol/L (98-107); CREATININE - SERUM 0.7 mg/dL (0.6-1.3); GLUCOSE 117 mg/dL (74-106); SODIUM 140 mmol/L (136-145); UREA NITROGEN 11 mg/dL (7-18); eGFR NON AFRICAN AMERICAN 88 mL/min (90-120)
[2018-01-17] VITALS (25 sets, daily range): BP systolic 85–116; BP diastolic 36–66
[2018-01-17 06:21] LABS: HEMATOCRIT 28.2 % (36.0-48.0); HEMOGLOBIN 8.9 g/dL (12-16); MCHC 31.6 g/dL (31.0-37.0); MCV 91.9 fL (80.0-100.0); MEAN PLATELET VOLUME 10.4 fL (7.4-10.4); RBC 3.07 10x6/uL (4.00-5.40); WBC 11.4 10x3/uL (4.8-10.8)
[2018-01-17 06:35] LABS: CALC OSMOLALITY 274 mosm/kg (275-300); CALCIUM 8.3 mg/dL (8.5-10.1); CARBON DIOXIDE 28.8 mmol/L (21.0-32.0); CHLORIDE - SERUM 102 mmol/L (98-107); CREATININE - SERUM 0.7 mg/dL (0.6-1.3); GLUCOSE 121 mg/dL (74-106); POTASSIUM - SERUM 3.9 mmol/L (3.5-5.1); SODIUM 137 mmol/L (136-145); UREA NITROGEN 13 mg/dL (7-18); eGFR NON AFRICAN AMERICAN 88 mL/min (90-120)
[2018-01-17 10:16] LABS: APTT 38.8 SECONDS (22.8-39.4); INR 1.09 (0.85-1.17); PROTIME 13.7 SECONDS (11.6-15.0)
[2018-01-18] VITALS (25 sets, daily range): BP systolic 88–121; BP diastolic 36–63
[2018-01-18 06:21] LABS: HEMATOCRIT 26.9 % (36.0-48.0); HEMOGLOBIN 8.6 g/dL (12-16); MCH 29.2 pg (26.0-34.0); MCV 91.2 fL (80.0-100.0); MEAN PLATELET VOLUME 9.8 fL (7.4-10.4); RBC 2.95 10x6/uL (4.00-5.40); RDW 15.7 % (11.5-14.5); WBC 10.2 10x3/uL (4.8-10.8)
[2018-01-18 06:31] LABS: CALC OSMOLALITY 272 mosm/kg (275-300); CALCIUM 8.4 mg/dL (8.5-10.1); CARBON DIOXIDE 28.2 mmol/L (21.0-32.0); CHLORIDE - SERUM 101 mmol/L (98-107); CREATININE - SERUM 0.8 mg/dL (0.6-1.3); GLUCOSE 126 mg/dL (74-106); POTASSIUM - SERUM 4.4 mmol/L (3.5-5.1); SODIUM 136 mmol/L (136-145); UREA NITROGEN 11 mg/dL (7-18); eGFR NON AFRICAN AMERICAN 75 mL/min (90-120)
[2018-01-18 18:11] LABS: AFB SPECIMEN PROCESSING Concentration (())
[2018-01-19] VITALS (10 sets, daily range): BP systolic 100–108; BP diastolic 38–48
[2018-01-19 06:19] LABS: HEMATOCRIT 26.1 % (36.0-48.0); HEMOGLOBIN 8.3 g/dL (12-16); MCHC 31.8 g/dL (31.0-37.0); MCV 91.3 fL (80.0-100.0); MEAN PLATELET VOLUME 9.9 fL (7.4-10.4); RBC 2.86 10x6/uL (4.00-5.40); RDW 15.6 % (11.5-14.5); WBC 8.2 10x3/uL (4.8-10.8)
[2018-01-19 06:48] LABS: CALC OSMOLALITY 272 mosm/kg (275-300); CALCIUM 8.7 mg/dL (8.5-10.1); CARBON DIOXIDE 31.3 mmol/L (21.0-32.0); CHLORIDE - SERUM 101 mmol/L (98-107); CREATININE - SERUM 0.8 mg/dL (0.6-1.3); GLUCOSE 131 mg/dL (74-106); POTASSIUM - SERUM 3.8 mmol/L (3.5-5.1); SODIUM 136 mmol/L (136-145); UREA NITROGEN 10 mg/dL (7-18); eGFR NON AFRICAN AMERICAN 75 mL/min (90-120)
[2018-01-19 11:19] LABS: FUNGUS STAIN Final report (())
[2018-01-19] MEDS ORDERED: HEMOCYTE PLUS C1 CAP PO (13:16)
[2018-01-19] MEDS ORDERED: ASPIRIN81 MG PO (13:17)
[2018-01-19] MEDS ORDERED: LASIX40 MG PO (13:18)
[2018-01-19] MEDS ORDERED: K-TAB10 MEQ PO (13:21)
[2018-02-14 09:14] LABS: FUNGUS MYCOLOGY CULTURE Final report (())
[2018-03-12 10:12] LABS: ACID FAST CULTURE Negative (()); ACID FAST SMEAR Negative (())
== END 2018-01-19 14:00 | disposition home or self-care (01) | DRG 220 ==
LOC: D.CVICU 05:00 → D.SDCHOLD 05:00 → D.CVICU 09:29
PROVIDERS: General Practice; Internal Medicine Cardiovascular Disease; Thoracic Surgery (Cardiothoracic Vascular Surgery)
PROC: 02RF08Z Replacement of Aortic Valve with Zooplastic Tissue, Open Approach (ICD-10-PCS; principal; 2018-01-09 07:30)
PROC: 0W993ZZ Drainage of Right Pleural Cavity, Percutaneous Approach (ICD-10-PCS; 2018-01-12)
PROC: 0W993ZZ Drainage of Right Pleural Cavity, Percutaneous Approach (ICD-10-PCS; 2018-01-17)
DX: I35.0 Nonrheumatic aortic (valve) stenosis (principal); D62 Acute posthemorrhagic anemia; M47.16 Other spondylosis with myelopathy, lumbar region; J90 Pleural effusion, not elsewhere classified; J98.11 Atelectasis; J81.1 Chronic pulmonary edema; G47.33 Obstructive sleep apnea (adult) (pediatric); J44.9 Chronic obstructive pulmonary disease, unspecified; E66.9 Obesity, unspecified; I49.1 Atrial premature depolarization

== ENCOUNTER → 2018-01-23 12:14 | Outpatient (CLI) | payer MEDICARE, OTHER ==
[2018-01-10 14:03] VITALS: BMI 31.3
[~2018-01-23 12:14] MED LIST changes: +ASPIRIN81 MG PO; +HEMOCYTE PLUS C1 CAP PO; +K-TAB10 MEQ PO; +LASIX40 MG PO
== END | disposition home or self-care (01) ==
LOC: D.RAD 12:14
DX: J90 Pleural effusion, not elsewhere classified (principal)

== ENCOUNTER → 2018-02-21 12:37 | Outpatient (CLI) | payer MEDICARE, OTHER ==
[2018-01-10 14:03] VITALS: BMI 31.3
[2018-02-21 13:14] LABS: HEMATOCRIT 37.8 % (36.0-48.0); HEMOGLOBIN 12.2 g/dL (12-16)
[2018-02-21 13:22] LABS: CALC OSMOLALITY 280 mosm/kg (275-300); CALCIUM 8.7 mg/dL (8.5-10.1); CARBON DIOXIDE 29.7 mmol/L (21.0-32.0); CHLORIDE - SERUM 106 mmol/L (98-107); CREATININE - SERUM 0.8 mg/dL (0.6-1.3); GLUCOSE 120 mg/dL (74-106); POTASSIUM - SERUM 3.9 mmol/L (3.5-5.1); SODIUM 140 mmol/L (136-145); UREA NITROGEN 16 mg/dL (7-18); eGFR NON AFRICAN AMERICAN 75 mL/min (90-120)
== END | disposition home or self-care (01) ==
LOC: D.RAD 12:37 → D.LAB 14:15
PROVIDERS: Thoracic Surgery (Cardiothoracic Vascular Surgery)
DX: J91.8 Pleural effusion in other conditions classified elsewhere (principal); D64.9 Anemia, unspecified

== ENCOUNTER 2018-09-12 06:30 | Day surgery (SDC) | payer MEDICARE, OTHER ==
[2018-09-11 10:07] LABS: HEMATOCRIT 43.8 % (36.0-48.0); HEMOGLOBIN 15.1 g/dL (12-16); MCHC 34.5 g/dL (31.0-37.0); MCV 89.9 fL (80.0-100.0); MEAN PLATELET VOLUME 11.9 fL (7.4-10.4); RBC 4.87 10x6/uL (4.00-5.40); RDW 13.5 % (11.5-14.5); WBC 6.8 10x3/uL (4.8-10.8)
[~2018-09-12] VITALS: Ht 167.6 cm; Wt 81.6 kg
[~2018-09-12 06:30] MED LIST changes: +BETAPACE 80 MG80 MG PO
[2018-09-12 07:24] VITALS: BP 123/79; Ht 167.6 cm; Wt 81.6 kg
--- NOTE | 2018-10-03 09:56 | OP ---
PATIENT NAME: DAVIN NAGEL MEDICAL RECORD: [id number] :49 LOCATION:[facility] ADMISSION DATE: SURGEON: CARLOS DECKER DPM DATE OF OPERATION: 09/12/2018 PREOPERATIVE DIAGNOSIS: Arthritis, right first metatarsophalangeal joint. POSTOPERATIVE DIAGNOSIS: Arthritis, right first metatarsophalangeal joint. PROCEDURE: Excision of arthritic bone, dorsal aspect of the right first MPJ, orchiectomy. ANESTHESIA: General with local infiltrate utilizing lidocaine and Marcaine plain, approximately 19 cc around the first ray of the right foot. HEMOSTASIS: Right ankle tourniquet at 250 mmHg. PREOPERATIVE DETAILS: The patient was taken to the OR and placed on the operating table in supine position followed by induction of general anesthesia and infiltration of local anesthetic. The right extremity was then prepped and draped in the usual aseptic technique followed by exsanguination of extremity and inflation of tourniquet. A 15 blade was used to create a 4-cm linear incision over the dorsal aspect of the right first MPJ. The incision was deepened down through the subcutaneous tissue to the capsule. A linear capsulotomy was performed and the joint was freed and delivered. There was noted to be significant arthritic spurring on the dorsal aspect of both the first metatarsal head as well as the base of the proximal phalanx. There was also thinning of the cartilage, but there was no exposed bone at this point. A sagittal saw was used to resect the chondromalacia and arthritic bone dorsally. A rongeur was used to refine the debridement, wound was flushed. Capsule was repaired with 2-0 Vicryl, the subcutaneous tissue with 4-0 Rapide and the skin was closed with 4-0 Rapide in a subcuticular technique followed by Dermabond. Adaptic, 4 x 4 and Conform were used to dress the wound followed by Cobsofia. Tourniquet was deflated. POSTOPERATIVE DETAILS: The patient tolerated the procedure well and left the OR with vital signs stable and vascular status at preoperative levels. The patient was transferred to recovery per anesthesia in stable condition. TRANSINT:[id number] Voice Confirmation ID: [id number] DOCUMENT ID: [id number] CARLOS DECKER DPM at 0979 CC: [id number] DICTATION DATE: 09/12/18 1004 SHIPPER RECEIVER: 09/12/18 1030 [facility] 09/12/18 [facility] [address] [place] [id number]
== END 2018-09-12 11:50 | disposition home or self-care (01) ==
LOC: D.OPS 06:30 → D.PAN 08:45 → D.OPS 08:45
PROVIDERS: Anesthesiology
DX: M13.871 Other specified arthritis, right ankle and foot (principal); I48.91 Unspecified atrial fibrillation; I10 Essential (primary) hypertension; E78.00 Pure hypercholesterolemia, unspecified; I35.0 Nonrheumatic aortic (valve) stenosis; Z87.891 Personal history of nicotine dependence; Z95.2 Presence of prosthetic heart valve; Z88.5 Allergy status to narcotic agent; Z88.8 Allergy status to other drugs, medicaments and biological substances; Z79.82 Long term (current) use of aspirin; Z79.899 Other long term (current) drug therapy; Z01.812 Encounter for preprocedural laboratory examination

== ENCOUNTER 2019-03-15 14:26 | Inpatient (IN) | payer MEDICARE, OTHER ==
[~2019-03-15] VITALS: Ht 167.6 cm; Wt 77.3 kg
[2019-04-23] MEDS ORDERED: BETAPACE 80 MG80 MG PO (14:22)
[2019-04-24 09:33] LABS: APPEARANCE CLEAR (CLEAR); BILIRUBIN NEGATIVE (NEGATIVE); COLOR YELLOW (YELLOW); GLUCOSE NEGATIVE (NEGATIVE); KETONE NEGATIVE (NEGATIVE); NITRITE NEGATIVE (NEGATIVE); PROTEIN NEGATIVE (NEGATIVE); UROBILINOGEN NORMAL (NORMAL)
[2019-04-24 09:34] LABS: ANION GAP 9.3 mmol/L (8-16); CALCIUM 8.9 mg/dL (8.5-10.1); CARBON DIOXIDE 30.1 mmol/L (21.0-32.0); CREATININE - SERUM 0.9 mg/dL (0.6-1.3); POTASSIUM - SERUM 4.4 mmol/L (3.5-5.1)
[2019-04-24 09:36] LABS: APTT 29.5 SECONDS (22.8-39.4); INR 0.93 (0.85-1.17)
[2019-04-24 09:52] LABS: BASOPHILS 0.4 % (0-2); EOSINOPHILS 3.9 % (0-7); HEMATOCRIT 43.3 % (36.0-48.0); HEMOGLOBIN 14.9 g/dL (12-16); IMMATURE GRANULOCYTES 0.1 % (0-5); LYMPHOCYTES 19.3 % (15-50); MCHC 34.4 g/dL (31.0-37.0); MCV 87.1 fL (80.0-100.0); MEAN PLATELET VOLUME 11.6 fL (7.4-10.4); MONOCYTES 7.4 % (2-11); NEUTROPHILS 68.9 % (40-80); PLATELET COUNT 202 10x3/uL (130-400); RBC 4.97 10x6/uL (4.00-5.40); RDW 13.9 % (11.5-14.5); WBC 6.7 10x3/uL (4.8-10.8)
[2019-04-30] VITALS (14 sets, daily range): BP systolic 101–134; BP diastolic 51–78; Ht 167.6 cm; Wt 77.3 kg
--- NOTE | 2019-04-30 07:54 | NUR ---
PLASMA BLADE SET TO 6/8 BOVIE PAD RIGHT FLANK [id number] EXP 08/29/20 PREPPED FROM UPPER LEFT THIGH TO TOES CIRCUMFERENTIALLY HIBICLENS AND ALCOHOL PRIOR TO CHLORAPREP LAMINAR FLOW IN USE TRAFFIC IN AND OUT OF ROOM MONITORED CLOSELY AND KEPT TO A MINIMUM
--- NOTE | 2019-04-30 11:37 | OP ---
PATIENT NAME: DAVIN GRANADOS MEDICAL RECORD: [id number] :49 LOCATION:D.MS [id number] ADMISSION DATE:04/30/19 SURGEON: ABDIRASHID CARRERO DO DATE OF OPERATION: 04/30/2019 PROCEDURE PERFORMED: Left total knee arthroplasty. PREOPERATIVE DIAGNOSIS: Left knee osteoarthritis. POSTOPERATIVE DIAGNOSIS: Left knee osteoarthritis. INDICATIONS: Ms. Granados is a 73-year-old female who has had left knee pain and arthritis for quite some time. She has been dealing with it through injections and nonoperative treatment to no avail. She wanted something done surgically as it had been affecting her activities of daily living. She is aware of the risks including infection, bleeding, fracture, need for further surgery, damage to nerves and vessels and continued pain, loss of motion. She is aware of that and signed the consent. SURGEON: Abdirashid Carrero DO DESCRIPTION OF PROCEDURE: The patient received a block by anesthesia in the preoperative area, was taken to the operative suite, laid in supine position. I was assisted by Chad Dominique, advanced nurse practitioner. The left lower extremity was prepped and draped in sterile fashion after the patient was sedated and LMA was placed. Time-out was performed, everyone was in agreement as to the correct side, site, patient, and procedure. The patient received 2 grams of Ancef and 80 mg of gentamicin prior to the surgery. The left lower extremity was then marked out and covered over the left knee with Ioban. Incision then began with a 10-blade scalpel down through the skin to the capsule. The capsule was then exposed and a medial parapatellar approach was used to enter the knee joint. The patella was then everted and the fat pad was removed. Any bleeding was coagulated with Aquamantys throughout the procedure. The patella was then milled down, measured to be 30 mm thick for the prosthesis. The knee was then flexed up. The ACL was removed and the femoral canal was entered. Distal femur was then cut and then the proximal tibia was cut. The tibia bone was removed as well as the menisci and any bleeding was coagulated at that time with Aquamantys. A 10 extension block was then put in and fit very well. The knee was then flexed up and the femur sized to be 65. A 65, 4-in-1 cutting block was put on and measured with [place] wing to ensure that we did not notch. Once this was cut, the bone was removed and then the 65 trial was put on. The tibia was floated in and range and marked. Once that was completed, the drill holes were put in the patella. There appeared to be a saw cut in the patella; however, it did not go through the surface where the prosthesis of the outer patella. The lug holes on the femur were then drilled and the tibia was exposed sized to be 71. Due to her soft bone quality, it was decided to put an 80 stemmed tibia in. This was then drilled and then punched and the tibia was irrigated. The cement was then mixed, placed along the implant and in the tibia and impacted into place. Once this was impacted into place, excess cement was removed. The femur was then impacted along and was press fit and a 10 poly was put in between the knee. It was brought to extension and the patella was exposed and cement was put in the holes as well as on the patellar implant and the squeezer was held to hold this into place while the cement dried. Excess cement was removed from that in the tibia. The knee was then irrigated with Bactisure a liter and a half of normal saline following that. Once the cement OPERATIVE REPORT [id number] DAVIN GRANADOS was dried, the tibial poly was used, 10 seemed to fit pretty well, but the 12 fit better, decided to put a 12 deep dish poly in or anterior stabilized. Once that was in there, the locking mechanism pin was put in on the implant. This was then irrigated again and tobramycin and vancomycin powder as well as Torey powder was put in the knee. The capsule was closed with #2 Ethibond in a azydyl-yh-qoygb fashion. Skin was then closed with 2-0 Vicryl in an interrupted fashion and a ZipLine placed on the knee. Adaptic, 4 x 4s, ABD, Webril and Brandon wrap were then placed on the knee and a SHILO hose stocking up to the knee. The patient was then awakened and taken to recovery in stable condition. Blood loss was approximately 200 mL. COMPLICATIONS: None. TRANSINT:[id number] Voice Confirmation ID: [id number] DOCUMENT ID: [id number] ABDIRASHID CARRERO DO at 1137 CC: [id number] DICTATION DATE: 04/30/19 0850 CAB SUPERVISOR: 04/30/19 0944 ADM IN [facility] [address] [place] [id number]
[2019-05-01] VITALS: BP 91/45
--- NOTE | 2019-05-01 03:54 | NUR ---
RESTING IN BED ALERT AND ORENTED ABLE TO VOICE NEEDS AND WANTS TO STAFF FAMILY AT BEDSIDE, IV TO RIGHT HAND WITH 1/2 NS AT [address] LEFT TOTAL KEEN DRESSING CDI. CPM PER ORDERS. TEDS PLEXIE PULSE TO LEFT FOOT SCD TO RIGHT LEG. TELEMETRY 57 SINIS WANDA. INCENTIVE SPIROMETER IN REACH. CALL LIGHT IN REACH. NO NEEDS AT THIS TIME.
[2019-05-01 04:00] VITALS: BP 101/46
[2019-05-01 06:29] LABS: BASOPHILS 0.1 % (0-2); EOSINOPHILS 0.2 % (0-7); HEMATOCRIT 33.3 % (36.0-48.0); HEMOGLOBIN 11.3 g/dL (12-16); IMMATURE GRANULOCYTES 0.2 % (0-5); LYMPHOCYTES 11.6 % (15-50); MCH 29.6 pg (26.0-34.0); MCHC 33.9 g/dL (31.0-37.0); MCV 87.2 fL (80.0-100.0); MEAN PLATELET VOLUME 11.8 fL (7.4-10.4); MONOCYTES 10.7 % (2-11); NEUTROPHILS 77.2 % (40-80); RBC 3.82 10x6/uL (4.00-5.40); RDW 14.1 % (11.5-14.5); WBC 10.1 10x3/uL (4.8-10.8)
[2019-05-01 06:30] LABS: PLATELET COUNT 157 10x3/uL (130-400)
[2019-05-01 07:19] LABS: ALBUMIN 2.7 g/dL (3.4-5.0); ANION GAP 10.9 mmol/L (8-16); BILIRUBIN - TOTAL 0.37 mg/dL (0.2-1.3); CALCIUM 8.7 mg/dL (8.5-10.1); CARBON DIOXIDE 26.8 mmol/L (21.0-32.0); CREATININE - SERUM 0.9 mg/dL (0.6-1.3); POTASSIUM - SERUM 4.7 mmol/L (3.5-5.1); PROTEIN - SERUM 6.3 g/dL (6.4-8.2)
--- NOTE | 2019-05-01 07:57 | NUR ---
PT RESTING IN BED. ON CPM. AT BEDSIDE. BROUGHT BOTH SOME COFFEE. NO S/S OF ACUTE DISTRESS. CL IN PLACE.
[2019-05-01 08:19] VITALS: BP 93/49
[2019-05-01 12:45] VITALS: BP 102/44
[2019-05-01 16:05] VITALS: BP 104/49
--- NOTE | 2019-05-01 18:40 | NUR ---
pt resting in BED. ON CPM. DC IV WITH TIP INTACT PT CO "BEING SORE AND HURTING." REFUSED TO RESITE IV. NO S/S OF ACUTE DISTRESS. CL IN PLACE.
[2019-05-01 20:00] VITALS: BP 117/57
--- NOTE | 2019-05-01 20:00 | NUR ---
ALERT AND ORIENTIATEED RESTING IN BED CPM IN USE, DENIES PAIN [place] NEEDS AT THIS TIME, CALL LIGHT IN REACH, SEE ASSESSMENT
[2019-05-02 04:30] VITALS: BP 122/49
--- NOTE | 2019-05-02 06:05 | NUR ---
PLACED ON CPM AT THIS TIME
[2019-05-02 06:34] LABS: ALBUMIN 2.6 g/dL (3.4-5.0); ANION GAP 9.4 mmol/L (8-16); BILIRUBIN - TOTAL 0.42 mg/dL (0.2-1.3); CALCIUM 8.1 mg/dL (8.5-10.1); CARBON DIOXIDE 28.6 mmol/L (21.0-32.0); CREATININE - SERUM 0.9 mg/dL (0.6-1.3); PROTEIN - SERUM 5.7 g/dL (6.4-8.2)
[2019-05-02 06:36] LABS: BASOPHILS 0.5 % (0-2); EOSINOPHILS 4.2 % (0-7); HEMATOCRIT 31.5 % (36.0-48.0); HEMOGLOBIN 10.7 g/dL (12-16); IMMATURE GRANULOCYTES 0.2 % (0-5); LYMPHOCYTES 24.2 % (15-50); MCH 29.6 pg (26.0-34.0); MONOCYTES 9.2 % (2-11); NEUTROPHILS 61.7 % (40-80); PLATELET COUNT 132 10x3/uL (130-400); RBC 3.62 10x6/uL (4.00-5.40); RDW 14.1 % (11.5-14.5)
[2019-05-02 06:37] LABS: WBC 6.7 10x3/uL (4.8-10.8)
--- NOTE | 2019-05-02 07:34 | NUR ---
PT RESTING IN BED WITH EYES OPEN, AT THE BEDSIDE. CURRENTLY ON CPM. NO IV ACCESS. NO S/S OF DISTRESS, DENIES NEEDS AT THIS TIME, WILL CONT TO MONITOR.
[2019-05-02] MEDS ORDERED: ELIQUIS2.5 MG PO (08:35)
[2019-05-02] MEDS ORDERED: KEFLEX500 MG PO (08:36)
[2019-05-02] MEDS ORDERED: HYDROCODON-ACE1 EA10 PO (08:36)
[2019-05-02 08:47] VITALS: BP 154/72
--- NOTE | 2019-05-02 10:37 | MORECARE ---
CASE MANAGEMENT DISCHARGE SUMMARY PATIENT: DAVIN NAGEL UNIT: [id number] ADM DATE: 04/30/19 AGE: 73 : 47 SEX: F ROOM/BED: D.2209 AUTHOR: MAGNUS BLEVINS PHYSICIAN: REFERRING PHYSICIAN: QUINCY CARRERO DO DATE OF SERVICE: 05/02/19 Discharge Plan Patient Name: DAVIN [facility]AGEL [facility] [facility] 1945 Planned Disposition: Home or Self Care Anticipated Discharge Date: Discharge Date: Expected LOS: Initial Reviewer: [email or web address] Initial Review Date: 04/30/2019 Generated: 05/02/19 11:36 am DCPIA - Discharge Planning Initial Assessment Updated by [email or web address]: Marisol Mann on 05/02/19 10:36 am * Is the patient Alert and Oriented? Yes * How many steps to enter\exit or inside your home? RAMP * PCP PAROTT * Pharmacy [facility] [address] * Preadmission Environment Home with Family * ADLs Independent * Equipment Cane Walker * List name and contact numbers for known caregivers / representatives who currently or will assist patient after discharge: EMERY NAGEL [phone] * Verbal permission to speak to the caregivers and representatives has been obtained from the patient. Yes * Community resources currently utilized None * Additional services required to return to the preadmission environment? Yes * Can the patient safely return to the preadmission environment? Yes * Has this patient been hospitalized within the prior 30 days at any hospital? No Patient Name: DAVIN NAGEL Page [id number] at 1037 All edits/amendments must be made on the electronic document DICTATION DATE: 05/02/19 1036 RAILWAY TRACK WORKER: CORNEL 05/02/19 1036 RPT#: [id number] DC DATE: STATUS: ADM IN [facility] [address] [place] [address] END OF REPORT
--- NOTE | 2019-05-02 10:44 | MORECARE ---
CASE MANAGEMENT DISCHARGE SUMMARY PATIENT: DAVIN NAGEL UNIT: [id number] ADM DATE: 04/30/19 AGE: 73 : 47 SEX: F ROOM/BED: D.6740 AUTHOR: MAGNUS BLEVINS PHYSICIAN: REFERRING PHYSICIAN: QUINCY CARRERO DO DATE OF SERVICE: 05/02/19 Discharge Plan Patient Name: DAVIN NAGEL Facility: [facility]:[place] : 1945 Planned Disposition: Home or Self Care Anticipated Discharge Date: Discharge Date: Expected LOS: Initial Reviewer: [email or web address] Initial Review Date: 04/30/2019 Generated: 05/02/19 11:43 am Comments DCP- Discharge Planning Updated by [email or web address]: Marisol Mann on 05/02/19 9:[address] Patient Name: DAVIN NAGEL Admission Status: Urgent Accout number: [id number] Admission Date: 04-30-2019 : 1945 Admission Diagnosis: Attending: QUINCY CARRERO Current LOS: 2 Anticipated DC Date: Planned Disposition: Home or Self Care Primary Insurance: MEDICARE A & B Discharge Planning Comments: CM met with patient to complete initial dc planning assessment. CM educated patient on the CM role and verbal consent given by patient to complete assessment. Patient lives at home with her where she is independent with her care. At discharge patient plans to return home and feels this is a safe discharge. CM discussed availability of home health, rehab services, and medical equipment. She would like to do OP PT at [facility], I have made her appointment for May 07 @ 1:45 pm. I spoke with Amado. She has a walker and a cane at home. There will be a CPM, Ice Machine, walker from [employer] that will be delivered to her home when she is discharged today. I spoke with Fidencio at [employer]. Dr. Helton Office set this up before surgery. Patient denied known discharge needs at this time. CM will continue to follow and will assist as needed with dc plans/needs. Copier Repair Technician: Marisol Mann DCPIA - Discharge Planning Initial Assessment Updated by [email or web address]: Marisol Mann on 05/02/19 10:36 am * Is the patient Alert and Oriented? Yes * How many steps to enter\exit or inside your home? RAMP * PCP [facility]OTT * Pharmacy [facility] [address] * Preadmission Environment Home with Family * ADLs Independent * Equipment Cane Walker * List name and contact numbers for known caregivers / representatives who currently or will assist patient after discharge: EMERY NAGEL [phone] * Verbal permission to speak to the caregivers and representatives has been obtained from the patient. Yes * Community resources currently utilized None * Additional services required to return to the preadmission environment? Yes * Can the patient safely return to the preadmission environment? Yes * Has this patient been hospitalized within the prior 30 days at any hospital? No Last DP export: 05/02/19 9:37 a Patient Name: DAVIN NAGEL Page 20007 at 1044 All edits/amendments must be made on the electronic document DICTATION DATE: 05/02/19 1043 CONTACT MANAGER: CORNEL 05/02/19 1043 RPT#: [id number] DC DATE: STATUS: ADM IN [facility] [address] [place] [address] END OF REPORT
--- NOTE | 2019-05-02 11:15 | NUR ---
DRESSING CHANGED PER ORDERS.
--- NOTE | 2019-05-02 12:13 | NUR ---
PT DC`D HOME WITH VIA HOSPITAL STAFF/WHEELCHAIR.
--- NOTE | 2019-05-09 13:40 | MORECARE ---
CASE MANAGEMENT DISCHARGE SUMMARY PATIENT: DAVIN NAGEL UNIT: [id number] ADM DATE: 04/30/19 AGE: 73 : 47 SEX: F ROOM/BED: D.8077 AUTHOR: MAGNUS BLEVINS PHYSICIAN: REFERRING PHYSICIAN: QUINCY CARRERO DO DATE OF SERVICE: 05/09/19 Discharge Plan Patient Name: DAVIN NAGEL Facility: [facility]:[place] : 1945 Planned Disposition: Home or Self Care Anticipated Discharge Date: Discharge Date: 05/02/2019 Expected LOS: 0 Initial Reviewer: [email or web address] Initial Review Date: 04/30/2019 Generated: 05/09/19 2:40 pm Comments DCP- Discharge Planning Updated by [email or web address]: Marisol Mann on 05/02/19 9:[address] Patient Name: DAVIN NAGEL Admission Status: Urgent Accout number: [id number] Admission Date: 04-30-2019 : 1945 Admission Diagnosis: Attending: QUINCY CARRERO Current LOS: 2 Anticipated DC Date: Planned Disposition: Home or Self Care Primary Insurance: MEDICARE A & B Discharge Planning Comments: CM met with patient to complete initial dc planning assessment. CM educated patient on the CM role and verbal consent given by patient to complete assessment. Patient lives at home with her where she is independent with her care. At discharge patient plans to return home and feels this is a safe discharge. CM discussed availability of home health, rehab services, and medical equipment. She would like to do OP PT at [facility], I have made her appointment for May 07 @ 1:45 pm. I spoke with Amado. She has a walker and a cane at home. There will be a CPM, Ice Machine, walker from [employer] that will be delivered to her home when she is discharged today. I spoke with Fidencio at [employer]. Dr. Helton Office set this up before surgery. Patient denied known discharge needs at this time. CM will continue to follow and will assist as needed with dc plans/needs. Stretcher Helper: Marisol Mann DCPIA - Discharge Planning Initial Assessment Updated by [email or web address]: Marisol Mann on 05/02/19 10:36 am * Is the patient Alert and Oriented? Yes * How many steps to enter\exit or inside your home? RAMP * PCP BORIS * Pharmacy [facility] [address] * Preadmission Environment Home with Family * ADLs Independent * Equipment Cane Walker * List name and contact numbers for known caregivers / representatives who currently or will assist patient after discharge: EMERY NAGEL [phone] * Verbal permission to speak to the caregivers and representatives has been obtained from the patient. Yes * Community resources currently utilized None * Additional services required to return to the preadmission environment? Yes * Can the patient safely return to the preadmission environment? Yes * Has this patient been hospitalized within the prior 30 days at any hospital? No Last DP export: 05/02/19 9:44 a Patient Name: DAVIN NAGEL Page [id number] at 1340 All edits/amendments must be made on the electronic document DICTATION DATE: 05/09/19 1340 BROACH SETTER: CORNEL 05/09/19 1340 RPT#: [id number] DC DATE:05/02/19 STATUS: DIS IN [facility] [address] [place] [address] END OF REPORT
== END 2019-05-02 12:18 | disposition home or self-care (01) | DRG 470 ==
LOC: D.SDCHOLD 04-30 05:00 → D.MS 04-30 05:00 → D.SDCHOLD 04-30 07:00 → D.MS 04-30 09:47 → D.SDCHOLD 04-30 10:00 → D.MS 05-02 12:18
PROVIDERS: Emergency Medicine; ADMIT Orthopaedic Surgery; ATTEND Orthopaedic Surgery
PROC: 0SRD0J9 Replacement of Left Knee Joint with Synthetic Substitute, Cemented, Open Approach (ICD-10-PCS; principal; 2019-04-30 07:00)
DX: M17.12 Unilateral primary osteoarthritis, left knee (principal); D62 Acute posthemorrhagic anemia; I48.91 Unspecified atrial fibrillation; I35.1 Nonrheumatic aortic (valve) insufficiency; M85.80 Other specified disorders of bone density and structure, unspecified site

== ENCOUNTER → 2019-03-25 07:59 | Outpatient (CLI) | payer MEDICARE, OTHER ==
[2018-09-12 07:24] VITALS: BMI 29.1
[~2019-03-25 07:59] MED LIST changes: +HYDROCODON-ACE1 EA10 PO; +KEFLEX500 MG PO
== END | disposition home or self-care (01) ==
LOC: D.HCCARDIO 07:59
PROVIDERS: ATTEND Internal Medicine Cardiovascular Disease
DX: I48.91 Unspecified atrial fibrillation (principal)

== ENCOUNTER → 2019-04-16 11:28 | Outpatient (CLI) | payer MEDICARE ==
[2018-09-12 07:24] VITALS: BMI 29.1
== END | disposition home or self-care (01) ==
LOC: D.LABREF 11:28
PROVIDERS: ATTEND Orthopaedic Surgery
DX: M17.12 Unilateral primary osteoarthritis, left knee (principal)

== ENCOUNTER → 2019-06-10 11:17 | Outpatient (CLI) | payer MEDICARE, OTHER ==
[2019-04-30 12:56] VITALS: BMI 27.5
[~2019-06-10 11:17] MED LIST changes: +ASPIRIN325 MG PO; +SULFAMETHOXAZOL1 TA2 PO
== END | disposition home or self-care (01) ==
LOC: D.LABREF 11:17
PROVIDERS: ATTEND Orthopaedic Surgery
DX: M25.562 Pain in left knee (principal)

== ENCOUNTER 2019-06-10 13:50 | Inpatient (IN) | payer MEDICARE, OTHER ==
[~2019-06-10] VITALS: Ht 167.6 cm; Wt 77.3 kg
[2019-06-10] VITALS (8 sets, daily range): BP systolic 90–142; BP diastolic 41–70; BMI 26.7
[~2019-06-10 13:50] MED LIST changes: -ASPIRIN325 MG PO; -SULFAMETHOXAZOL1 TA2 PO
[2019-06-10 13:54] LABS: ERYTHROCYTE SEDIMENTATION RATE 12 mm/hr (0-30)
[2019-06-10 14:04] LABS: HEMATOCRIT 41.7 % (36.0-48.0); HEMOGLOBIN 13.8 g/dL (12-16); MCH 30.3 pg (26.0-34.0); MCHC 33.1 g/dL (31.0-37.0); MCV 91.4 fL (80.0-100.0); MEAN PLATELET VOLUME 12.2 fL (7.4-10.4); RBC 4.56 10x6/uL (4.00-5.40); RDW 14.1 % (11.5-14.5); WBC 6.9 10x3/uL (4.8-10.8)
[2019-06-10 14:14] LABS: PLATELET COUNT 266 10x3/uL (130-400)
[2019-06-10 14:36] LABS: CALC OSMOLALITY 279 mosm/kg (275-300); CALCIUM 9.4 mg/dL (8.5-10.1); CARBON DIOXIDE 28.4 mmol/L (21.0-32.0); CHLORIDE - SERUM 105 mmol/L (98-107); CREATININE - SERUM 0.8 mg/dL (0.6-1.3); GLUCOSE 98 mg/dL (74-106); POTASSIUM - SERUM 4.4 mmol/L (3.5-5.1); SODIUM 140 mmol/L (136-145); UREA NITROGEN 14 mg/dL (7-18); eGFR NON AFRICAN AMERICAN 75 mL/min (90-120)
[2019-06-10 14:40] LABS: BASOPHILS 0.3 % (0-2); EOSINOPHILS 3.6 % (0-7); HEMATOCRIT 41.8 % (36.0-48.0); HEMOGLOBIN 13.7 g/dL (12-16); IMMATURE GRANULOCYTES 0.4 % (0-5); LYMPHOCYTES 17.4 % (15-50); MCH 30.1 pg (26.0-34.0); MCHC 32.8 g/dL (31.0-37.0); MCV 91.9 fL (80.0-100.0); MEAN PLATELET VOLUME 11.3 fL (7.4-10.4); MONOCYTES 7.4 % (2-11); NEUTROPHILS 70.9 % (40-80); PLATELET COUNT 233 10x3/uL (130-400); RBC 4.55 10x6/uL (4.00-5.40); WBC 7.3 10x3/uL (4.8-10.8)
[2019-06-10] MEDS ORDERED: ASPIRIN325 MG PO (15:11)
[2019-06-10 15:40] LABS: EOSINOPHILS 2 % (0-7); LYMPHOCYTES 20 % (15-50); MONOCYTES 3 % (2-11); NEUTROPHILS 75 % (40-80); PLATELET ESTIMATE NORMAL
[2019-06-10 18:26] LABS: PROTEIN - BODY FLUID 6.1 G/DL
--- NOTE | 2019-06-10 20:15 | NUR ---
PT VOICES "NO IM NOT HURTING" WHEN ASKED IF HAVING ANY PAIN. WILL CONTINUE TO MONITOR.
[2019-06-11] VITALS (9 sets, daily range): BP systolic 90–132; BP diastolic 36–66; Ht 167.6 cm; Wt 77.3 kg
--- NOTE | 2019-06-11 00:49 | NUR ---
REC'D PATIENT FROM REC[facility]ERY AND ASSUMED CARE. FAMILY AT BEDSIDE. VSS. PATIENT HAS SHILO HOSE TO LEFT LEG. PUT SCD'S ON PATIENT, GAVE PATIENT IS AND INSTRUCTED ON USE. DISCUSSED PAIN CONTROL OPTIONS WITH PATIENT. PATIENT VERBALIZED UNDERSTANDING. SET UP PATIENT'S FLUIDS TO RIGHT AC PER ORDERS. PATIENT ON ROOM AIR AND CONT VITALS AT THIS TIME. APPLIED ICE TO THE PATIENT'S LEFT KNEE. BROUGHT PATIENT ICE AND ICE CHIPS. PATIENT DENIES OTHER NEEDS AT THIS TIME. BED IN LOWEST POSITION AND CALL LIGHT WITHIN REACH. ENCOURAGED THE PATIENT AND FAMILY TO CALL IF THEY HAVE NEEDS. WILL CONTINUE TO MONITOR.
--- NOTE | 2019-06-11 06:45 | OP ---
PATIENT NAME: DAVIN GRANADOS MEDICAL RECORD: [id number] :[birth year] LOCATION:D.MS [id number] ADMISSION DATE:06/10/19 SURGEON: ABDIRASHID CARRERO DO DATE OF OPERATION: 06/10/2019 PROCEDURE PERFORMED: Left knee debridement with irrigation and poly exchange. 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 INDICATIONS: Ms. Granados is a 73-year-old female who underwent left total knee approximately 5 weeks ago and called today and said that she had increasing pain and a little bit of redness at the incision site of the superior pole of the knee. I informed her to come in right away. She was seen in clinic and seen to have some redness, although it seemed to be superficial and told her we were not taking chances that we would certainly check some lab work and due to the fact that there was swelling that she denied any fevers, but with the looks of it would do an I&D and get cultures, labs were done and CRP, ESR and white count were normal, but due to the physical exam, I told him we would wash it out and take cultures during the procedure. She was okay with that and was aware of the risk of further infection, bleeding, damage to nerves and vessels, need for further surgery, explant of the implants, blood clots, and even and she signed a consent. SURGEON: Abdirashid Carrero DO DESCRIPTION OF PROCEDURE: The patient was taken to the operative suite, laid in the supine position, given general anesthetic and LMA was placed. She was given a gram of vancomycin preoperatively. The left lower extremity was prepped and draped in sterile fashion. Timeout was performed. Everybody was in agreement as to the correct side, site, patient and procedure. The incision was then marked out and covered in Ioban. The incision was then made down to soft tissue. Cultures were taken and there was a hole that was seen communicating with the joint. This did have some synovial fluid coming out but no ryanne purulence. We then opened the joint and cultures were taken from that as well from the synovial fluid and taken to the lab for evaluation and PMNs per high power field. The PMNs per high power field came back. During this time, doing a debridement of all the synovium in the posterior aspect of the knee as well. By using a lamina civil transportation engineer, the poly was taken out, irrigated very thoroughly with 6 liters of normal saline. The PMNs came back as 6 per high power field. At that point, we have been irrigating up with Betadine into the knee and scrubbed the implants and soft tissues with a scrub brush. I then closed the capsule with 0-Monocryl and then ran a 2-0 Monocryl in the skin. I tore the drapes down and then re-prepped and redraped everything and covering the back with an Ioban and then the knee was reopened. The sutures were cut and irrigated again with 3 more liters of normal saline and then a liter of BactiSure and 3 more liters of normal saline. The new #12 E-poly was put back in and locked into place. It fit very well and had good stability medial or OPERATIVE REPORT [id number] GRANADOS,DAVIN ALEXANDRE lateral and extension and flexion. I then closed the capsule with 0-Monocryl, first with a few [id number] and then ran a locking #1 PDS running stitch on the capsule then closed the skin with 2-0 Vicryl and 2-0 Monocryl in inverted interrupted fashion and ran a 4-0 Monocryl alberto on the skin, then covered the wound with a Prevena plus. I did put a 1/4 inch drain out through the lateral side of the knee prior to closing the capsule. Blood loss approximately 300 mL. The patient was then wrapped with an Brandon wrap and Prevena was placed on wound VAC. She was awakened and taken to the recovery in stable condition. Complications none. TRANSINT:[id number] Voice Confirmation ID: [id number] DOCUMENT ID: [id number] ABDIRASHID CARRERO DO at 0645 CC: [id number] DICTATION DATE: 06/10/192025 SHEET METAL WELDER: 06/10/19 2342 ADM IN [facility] [address] [place] [address]
--- NOTE | 2019-06-11 06:50 | NUR ---
ALERT AND ORIENTED, RESTING IN BED. C/O PAIN. NO S/S OF ACUTE DISTRESS NOTED. POD #1 I&D TO LEFT KNEE, PROVENA AND HEMAVAC TO KNEE. SHILO HOSE TO LEFT LEG, SCDS TO BLE. IV TO RIGHT AC, NS INFUSING @ 50ML/HR. SITE PATENT WITHOUT REDNESS OR SWELLING. DENIES ANY NEEDS AT THIS TIME. CALL LIGHT IN REACH. WILL CONTINUE TO MONITOR.
[2019-06-11 07:04] LABS: MCH 29.5 pg (26.0-34.0); MCHC 31.7 g/dL (31.0-37.0); MCV 93.1 fL (80.0-100.0); MEAN PLATELET VOLUME 11.6 fL (7.4-10.4); RDW 14.4 % (11.5-14.5); WBC 7.9 10x3/uL (4.8-10.8)
[2019-06-11 07:14] LABS: ANION GAP 10.5 mmol/L (8-16); CARBON DIOXIDE 27.8 mmol/L (21.0-32.0); CREATININE - SERUM 1.8 mg/dL (0.6-1.3); POTASSIUM - SERUM 4.3 mmol/L (3.5-5.1)
[2019-06-11 07:25] LABS: HEMATOCRIT 32.2 % (36.0-48.0); HEMOGLOBIN 10.2 g/dL (12-16); RBC 3.46 10x6/uL (4.00-5.40)
--- NOTE | 2019-06-11 08:50 | NUR ---
I have reviewed this patient and I concur with the Shift Assessment completed by the Licensed Practical Nurse today this shift.
--- NOTE | 2019-06-11 18:28 | NUR ---
RESTING IN BED, EYES CLOSED. RESPIRATIONS EVEN AND UNLABORED. AT BEDSIDE. NO S/S OF ACUTE DISTRESS NOTED. NO C/O PAIN. DENIES ANY NEEDS AT THIS TIME. CALL LIGHT IN REACH. CPM ON LEFT LEG.
--- NOTE | 2019-06-11 20:00 | NUR ---
A/O WITH NO SIGNS OF DISTRESS. DRESSING TO THE LT LEG WITH WOUND VAC AND HEMOVAC IN PLACE. PULSE NOTED IN FOOT. REASSESSED BP OF 132/66 WITH MANUAL. IV TO THE RT HAND WITH NO REDNESS OR SWELLING. ASSISTED PT TO BATHROOM AND BACK IN BED. DENIES NO OTHER NEEDS AT THIS TIME. CONTINUE PLAN OF CARE.
[2019-06-12 02:03] VITALS: BP 98/60
[2019-06-12 05:43] VITALS: BP 116/64
[2019-06-12 05:54] LABS: BASOPHILS 0.5 % (0-2); EOSINOPHILS 4.4 % (0-7); HEMATOCRIT 27.7 % (36.0-48.0); HEMOGLOBIN 8.8 g/dL (12-16); IMMATURE GRANULOCYTES 0.2 % (0-5); LYMPHOCYTES 14.2 % (15-50); MCH 29.4 pg (26.0-34.0); MCHC 31.8 g/dL (31.0-37.0); MCV 92.6 fL (80.0-100.0); MEAN PLATELET VOLUME 11.9 fL (7.4-10.4); MONOCYTES 11.2 % (2-11); NEUTROPHILS 69.5 % (40-80); RBC 2.99 10x6/uL (4.00-5.40); RDW 14.3 % (11.5-14.5); WBC 6.4 10x3/uL (4.8-10.8)
[2019-06-12 05:56] LABS: PLATELET COUNT 163 10x3/uL (130-400)
[2019-06-12 06:32] LABS: ALBUMIN 2.5 g/dL (3.4-5.0); BILIRUBIN - TOTAL 0.45 mg/dL (0.2-1.3); CALCIUM 7.6 mg/dL (8.5-10.1); CARBON DIOXIDE 24.9 mmol/L (21.0-32.0); POTASSIUM - SERUM 3.9 mmol/L (3.5-5.1)
[2019-06-12 06:33] LABS: CREATININE - SERUM 2.4 mg/dL (0.6-1.3)
--- NOTE | 2019-06-12 08:00 | NUR ---
PATIENT IN BED WITH IV INTACT. NO COMDPLAINTS OR SIGNS OF DISTRESS. CPM ON. FAMILY AT BEDSIDE. CALL LIGHT WITHIN REACH.
[2019-06-12 08:24] VITALS: BP 154/57
--- NOTE | 2019-06-12 11:15 | NUR ---
PATIENT IV RESTARTED IN RIGHT HAND AT THIS TIME X 1 STICK. LEFT WRIST IV REMOVED DUE TO BURNING AND HURTING PATIENT. CATH TIP INTACT. CALL LIGHTW ITHIN REACH.
[2019-06-12 12:21] VITALS: BP 152/58
[2019-06-12 15:56] VITALS: BP 144/59
--- NOTE | 2019-06-12 16:54 | MORECARE ---
CASE MANAGEMENT DISCHARGE SUMMARY PATIENT: DAVIN GRANADOS UNIT: [id number] ADM DATE: 06/10/19 AGE: 73 : 47 SEX: F ROOM/BED: D.2224 AUTHOR: FELICITY,DOC PHYSICIAN: REFERRING PHYSICIAN: QUINCY CARRERO DO DATE OF SERVICE: 06/12/19 Discharge Plan Patient Name: DAVIN GRANADOS Facility: [facility]:[place] : 1945 Planned Disposition: Home Anticipated Discharge Date: Discharge Date: Expected LOS: Initial Reviewer: [email or web address] Initial Review Date: 06/12/2019 Generated: 06/12/19 5:53 pm Comments DCP- Discharge Planning Updated by [email or web address]: Isha Julian on 06/12/19 3:[address] Patient Name: DAVIN GRANADOS Admission Status: Elective Accout number: [id number] Admission Date: 06-10-2019 : 1945 Admission Diagnosis: Attending: QUINCY CARRERO Current LOS: 2 Anticipated DC Date: Planned Disposition: Home Primary Insurance: MEDICARE A & B Discharge Planning Comments: CM met with patient to complete initial dc planning assessment. CM educated patient on the CM role and verbal consent given by patient to complete assessment. Patient lives at home with her spouse. At discharge patient plans to return and feels this is a safe discharge. CM discussed availability of home health, rehab services, and medical equipment. Patient states that she just completed OP PT at [facility] and if Dr. Carrero wants her to continue them, she would like it set up at [facility]. She states if she needs a CPM, she will use whoever Dr. Carrero used before and his number is [phone]. CM will continue to follow and will assist as needed with dc plans/needs. Geophysical Prospecting Surveyor: Isha Julian DCPIA - Discharge Planning Initial Assessment Updated by [id number]: Isha Julian on 06/12/19 4:46 pm * Is the patient Alert and Oriented? Yes * PCP Dr. Johansen * Pharmacy [facility] on [address] * Preadmission Environment Home with Family * ADLs Partial Dependent * Partial ADLs (Assistance needed) Ambulation * Equipment Cane Walker * List name and contact numbers for known caregivers / representatives who currently or will assist patient after discharge: Zack Granados - [facility] - [phone] Manisha Spencer - [phone] * Verbal permission to speak to the caregivers and representatives has been obtained from the patient. Yes * Community resources currently utilized Other * Please name any agencies selected above. Just completed OP PT at [facility] * Additional services required to return to the preadmission environment? Yes * Can the patient safely return to the preadmission environment? Yes * Has this patient been hospitalized within the prior 30 days at any hospital? No Patient Name: DAVIN GRANADOS Page [phone] at 1654 All edits/amendments must be made on the electronic document DICTATION DATE: 06/12/191652 MANAGER LOSS PREVENTION: CORNEL 06/12/191652 RPT#: [id number] DC DATE: STATUS: ADM IN [facility] [address] [place] [address] END OF REPORT
--- NOTE | 2019-06-12 18:55 | NUR ---
PATIENT IN BED WITH IV INTACT. EYES CLOSED RESTING QUIETLY. CPM ON. FAMILY AT BEDSIDE. CALL LIGHT WITHIN REACH.
--- NOTE | 2019-06-12 19:20 | NUR ---
PT LYING IN BED WITHOUT DISTRESS, AOX4. LEFT LEG ON CPM. DENIES PAIN. AT BEDSIDE. SHILO HOSE ON, SCD TO RIGHT LEG. DENIES NEEDS. CL IN REACH, WILL CTM
[2019-06-12 20:00] VITALS: BP 133/54
--- NOTE | 2019-06-12 20:05 | NUR ---
TOOK CPM OFF AND ASSISTED PT UP TO SIDE OF BED. PT AMBULATED WITH STAND BY ASSIST AND CANE TO BATHROOM AND BACK TO BED. PLACED CPM BACK ON. DENIES OTHER NEEDS. WILL CTM
[2019-06-13 01:10] VITALS: BP 132/67
[2019-06-13 05:12] VITALS: BP 125/56
--- NOTE | 2019-06-13 05:25 | NUR ---
PT PLACED ON CPM
[2019-06-13 06:49] LABS: BASOPHILS 0.3 % (0-2); EOSINOPHILS 4.8 % (0-7); HEMATOCRIT 27.6 % (36.0-48.0); HEMOGLOBIN 8.8 g/dL (12-16); IMMATURE GRANULOCYTES 0.2 % (0-5); LYMPHOCYTES 15.9 % (15-50); MCH 29.8 pg (26.0-34.0); MCHC 31.9 g/dL (31.0-37.0); MCV 93.6 fL (80.0-100.0); MEAN PLATELET VOLUME 12.2 fL (7.4-10.4); MONOCYTES 8.9 % (2-11); NEUTROPHILS 69.9 % (40-80); PLATELET COUNT 176 10x3/uL (130-400); RBC 2.95 10x6/uL (4.00-5.40); RDW 14.5 % (11.5-14.5); WBC 6.3 10x3/uL (4.8-10.8)
[2019-06-13 07:22] LABS: ALBUMIN 2.5 g/dL (3.4-5.0); ANION GAP 11.9 mmol/L (8-16); BILIRUBIN - TOTAL 0.36 mg/dL (0.2-1.3); CALCIUM 8.2 mg/dL (8.5-10.1); CARBON DIOXIDE 25.7 mmol/L (21.0-32.0); CREATININE - SERUM 2.2 mg/dL (0.6-1.3); POTASSIUM - SERUM 3.6 mmol/L (3.5-5.1); PROTEIN - SERUM 6.1 g/dL (6.4-8.2)
[2019-06-13] MEDS ORDERED: ELIQUIS2.5 MG PO (07:22)
[2019-06-13] MEDS ORDERED: SULFAMETHOXAZOL1 TA2 PO (07:23)
--- NOTE | 2019-06-13 07:37 | MORECARE ---
CASE MANAGEMENT DISCHARGE SUMMARY PATIENT: DAIVN GRANADOS UNIT: [id number] ADM DATE: 06/10/19 AGE: 73 : 47 SEX: F ROOM/BED: D.2224 AUTHOR: FELICITY,DOC PHYSICIAN: REFERRING PHYSICIAN: QUINCY CARRERO DO DATE OF SERVICE: 06/13/19 Discharge Plan Patient Name: DAVIN GRANADOS Facility: [facility]:[place] : 1945 Planned Disposition: Home Anticipated Discharge Date: Discharge Date: Expected LOS: Initial Reviewer: [email or web address] Initial Review Date: 06/12/2019 Generated: 06/13/19 8:36 am Comments DCP- Discharge Planning Updated by [email or web address]: Isha Julian on 06/12/19 3:[address] Patient Name: DAVIN GRANADOS Admission Status: Elective Accout number: [id number] Admission Date: 06-10-2019 : 1945 Admission Diagnosis: Attending: QUINCY CARRERO Current LOS: 2 Anticipated DC Date: Planned Disposition: Home Primary Insurance: MEDICARE A & B Discharge Planning Comments: CM met with patient to complete initial dc planning assessment. CM educated patient on the CM role and verbal consent given by patient to complete assessment. Patient lives at home with her spouse. At discharge patient plans to return and feels this is a safe discharge. CM discussed availability of home health, rehab services, and medical equipment. Patient states that she just completed OP PT at [facility] and if Dr. Carrero wants her to continue them, she would like it set up at [facility]. She states if she needs a CPM, she will use whoever Dr. Carrero used before and his number is [phone]. CM will continue to follow and will assist as needed with dc plans/needs. Anthropologist: Isha Julian DCPIA - Discharge Planning Initial Assessment Updated by [email or web address]: Isha Julian on 06/12/19 4:46 pm * Is the patient Alert and Oriented? Yes * PCP Dr. Johansen * Pharmacy [facility] on [address] * Preadmission Environment Home with Family * ADLs Partial Dependent * Partial ADLs (Assistance needed) Ambulation * Equipment Cane Walker * List name and contact numbers for known caregivers / representatives who currently or will assist patient after discharge: Zack Granados - [facility] - [phone] Manisha Spencer - [phone] * Verbal permission to speak to the caregivers and representatives has been obtained from the patient. Yes * Community resources currently utilized Other * Please name any agencies selected above. Just completed OP PT at [facility] * Additional services required to return to the preadmission environment? Yes * Can the patient safely return to the preadmission environment? Yes * Has this patient been hospitalized within the prior 30 days at any hospital? No External Providers [facility] Next Contact Date: Service Request Date: Service Type: Resolution: Reviewer: Comments: Last DP export: 06/12/19 3:54 Patient Name: DAVIN GRANADOS Page [phone] at 0737 All edits/amendments must be made on the electronic document DICTATION DATE: 06/13/19735 PREPARATION ROOM WORKER: CORNEL 06/13/19735 RPT#: [id number] DC DATE: STATUS: ADM IN [facility] [address] [place] [address] END OF REPORT
--- NOTE | 2019-06-13 07:43 | MORECARE ---
CASE MANAGEMENT DISCHARGE SUMMARY PATIENT: DAVIN GRANADOS UNIT: [id number] ADM DATE: 06/10/19 AGE: 73 : 47 SEX: F ROOM/BED: D.2224 AUTHOR: FELICITY,DOC PHYSICIAN: REFERRING PHYSICIAN: QUINCY CARRERO DO DATE OF SERVICE: 06/13/19 Discharge Plan Patient Name: DAVIN GRANADOS Facility: [facility]:[place] : 1945 Planned Disposition: Home Anticipated Discharge Date: Discharge Date: Expected LOS: Initial Reviewer: [email or web address] Initial Review Date: 06/12/2019 Generated: 06/13/19 8:43 am Comments DCP- Discharge Planning Updated by [email or web address]: Isha Julian on 06/12/19 3:[address] Patient Name: DAVIN GRANADOS Admission Status: Elective Accout number: [id number] Admission Date: 06-10-2019 : 1945 Admission Diagnosis: Attending: QUINCY CARRERO Current LOS: 2 Anticipated DC Date: Planned Disposition: Home Primary Insurance: MEDICARE A & B Discharge Planning Comments: CM met with patient to complete initial dc planning assessment. CM educated patient on the CM role and verbal consent given by patient to complete assessment. Patient lives at home with her spouse. At discharge patient plans to return and feels this is a safe discharge. CM discussed availability of home health, rehab services, and medical equipment. Patient states that she just completed OP PT at [facility] and if Dr. Carrero wants her to continue them, she would like it set up at [facility]. She states if she needs a CPM, she will use whoever Dr. Carrero used before and his number is [phone]. CM will continue to follow and will assist as needed with dc plans/needs. Garment Examiner: Isha Julian DCPIA - Discharge Planning Initial Assessment Updated by [email or web address]: Isha Julian on 06/12/19 4:46 pm * Is the patient Alert and Oriented? Yes * PCP Dr. Johansen * Pharmacy [facility] on [address] * Preadmission Environment Home with Family * ADLs Partial Dependent * Partial ADLs (Assistance needed) Ambulation * Equipment Cane Walker * List name and contact numbers for known caregivers / representatives who currently or will assist patient after discharge: Zack Granados - [facility] - [phone] Manisha Spencer - [phone] * Verbal permission to speak to the caregivers and representatives has been obtained from the patient. Yes * Community resources currently utilized Other * Please name any agencies selected above. Just completed OP PT at [facility] * Additional services required to return to the preadmission environment? Yes * Can the patient safely return to the preadmission environment? Yes * Has this patient been hospitalized within the prior 30 days at any hospital? No External Providers External Provider: OTHER-OTHER Next Contact Date: Service Request Date: Service Type: Resolution: Reviewer: Comments: Last DP export: 06/13/19 6:36 Patient Name: DAVIN GRANADOS Page [phone] at 0743 All edits/amendments must be made on the electronic document DICTATION DATE: 06/13/19742 CUSTOMER CONSULTANT: CORNEL 06/13/19742 RPT#: [id number] DC DATE: STATUS: ADM IN [facility] [address] [place] [address] END OF REPORT
[2019-06-13 08:08] VITALS: BP 143/61
--- NOTE | 2019-06-13 08:31 | MORECARE ---
CASE MANAGEMENT DISCHARGE SUMMARY PATIENT: DAVIN GRANADOS UNIT: [id number] ADM DATE: 06/10/19 AGE: 73 : 47 SEX: F ROOM/BED: D.2224 AUTHOR: FELICITY,MAGNUS PHYSICIAN: REFERRING PHYSICIAN: ABDIRASHID CARRERO DO DATE OF SERVICE: 06/13/19 Discharge Plan Patient Name: DAVIN GRANADOS Facility: [facility]:[place] : 1945 Planned Disposition: Home Anticipated Discharge Date: Discharge Date: Expected LOS: Initial Reviewer: [email or web address] Initial Review Date: 06/12/2019 Generated: 06/13/19 9:31 am Comments DCP- Discharge Planning Updated by [email or web address]: Isha Julian on 06/13/19 7:[address] Received discharge orders. PT set up with [facility] OP PT per patient request, first visit is Jun.18 at 2:30. I called Abdirashid Keron with [employer] and they will deliver her CPM back to her house today. He states he has received an order from Dr. Carrero's office. I informed him that I also faxed order. She states a friend will take her home today. No other needs voiced or identified. CM will continue to follow and assist with discharge planning/needs. DCP- Discharge Planning Updated by [email or web address]: Isha Julian on 06/12/19 3:[address] Patient Name: DAVIN GRANADOS Admission Status: Elective Accout number: [id number] Admission Date: 06-10-2019 : 1945 Admission Diagnosis: Attending: ABDIRASHID CARRERO Current LOS: 2 Anticipated DC Date: Planned Disposition: Home Primary Insurance: MEDICARE A & B Discharge Planning Comments: CM met with patient to complete initial dc planning assessment. CM educated patient on the CM role and verbal consent given by patient to complete assessment. Patient lives at home with her spouse. At discharge patient plans to return and feels this is a safe discharge. CM discussed availability of home health, rehab services, and medical equipment. Patient states that she just completed OP PT at [facility] and if Dr. Carrero wants her to continue them, she would like it set up at [facility]. She states if she needs a CPM, she will use whoever Dr. Carrero used before and his number is [phone]. CM will continue to follow and will assist as needed with dc plans/needs. Refinery Superintendent: Isha Eliel DCPIA - Discharge Planning Initial Assessment Updated by [email or web address]: Isha Julian on 06/12/19 4:46 pm * Is the patient Alert and Oriented? Yes * PCP Dr. Johansen * Pharmacy [facility] on [address] * Preadmission Environment Home with Family * ADLs Partial Dependent * Partial ADLs (Assistance needed) Ambulation * Equipment Cane Walker * List name and contact numbers for known caregivers / representatives who currently or will assist patient after discharge: Zack Granados - - [phone] Manisha Spencer - [phone] * Verbal permission to speak to the caregivers and representatives has been obtained from the patient. Yes * Community resources currently utilized Other * Please name any agencies selected above. Just completed OP PT at [facility] * Additional services required to return to the preadmission environment? Yes * Can the patient safely return to the preadmission environment? Yes * Has this patient been hospitalized within the prior 30 days at any hospital? No Coverage Notice Reviewer: [email or web address] - Isha Julian Notice Issued Date-Time: 06/13/2019 8:26 Notice Type: IM Discharge Notice Notice Delivered To: Patient Relationship to Patient: Self Coach Mechanic Name: Delivery Method: HAND - Hand Delivered Julia Days: Prior Verbal Notification: Recipient Understood Notice: Yes Recipient Signature: Yes Med Rec Note Co-signed by Attending: Coverage Notice Comment: IMM explained, signed, given, placed in MR Last DP export: 06/13/19 6:43 Patient Name: DAVIN GRANADOS Page [phone] at 0831 All edits/amendments must be made on the electronic document DICTATION DATE: 06/13/19830 BACK TENDER CYLINDER: CORNEL 06/13/19830 RPT#: [id number] DC DATE: STATUS: ADM IN [facility] [address] [place] [address] END OF REPORT
--- NOTE | 2019-06-13 09:00 | NUR ---
ASSESSMENT PER FLOW SHEET. PT IS WITHOUT DISTRESS.CALL LIGHT IN REACH
[2019-06-13 11:20] VITALS: BP 141/54
--- NOTE | 2019-06-13 12:09 | NUR ---
Applied prevena plus machine to dressing tubing. Power cords and dressing change kit sent with pt.
--- NOTE | 2019-06-13 12:50 | NUR ---
DISCHARGE INSTRUCTIONS,STATES UNDERSTANDING.IV DCD WITH CATH TIP INTACT.
--- NOTE | 2019-06-13 12:53 | NUR ---
LEFT UNIT VIA WHEELCHAIR FOR TRANSPORT HOME.
--- NOTE | 2019-06-14 15:46 | MORECARE ---
CASE MANAGEMENT DISCHARGE SUMMARY PATIENT: DAVIN GRANADOS UNIT: [id number] ADM DATE: 06/10/19 AGE: 73 : 49 SEX: F ROOM/BED: D.2224 AUTHOR: FELICITY,DOC PHYSICIAN: REFERRING PHYSICIAN: ABDIRASHID CARRERO DO DATE OF SERVICE: 06/14/19 Discharge Plan Patient Name: DAVIN GRANADOS Facility: [facility]:[place] : 1945 Planned Disposition: Home Anticipated Discharge Date: Discharge Date: 06/13/2019 Expected LOS: 0 Initial Reviewer: [email or web address] Initial Review Date: 06/12/2019 Generated: 06/14/19 4:46 pm Comments DCP- Discharge Planning Updated by [email or web address]: Isha Julian on 06/13/19 7:[address] Received discharge orders. PT set up with [facility] OP PT per patient request, first visit is Jun.18 at 2:30. I called Abdirashid Cabrales with [employer] and they will deliver her CPM back to her house today. He states he has received an order from Dr. Carrero's office. I informed him that I also faxed order. She states a friend will take her home today. No other needs voiced or identified. CM will continue to follow and assist with discharge planning/needs. DCP- Discharge Planning Updated by [email or web address]: Isha Julian on 06/12/19 3:[address] Patient Name: DAVIN GRANADOS Admission Status: Elective Accout number: [id number] Admission Date: 06-10-2019 : 1945 Admission Diagnosis: Attending: ABDIRASHID CARRERO Current LOS: 2 Anticipated DC Date: Planned Disposition: Home Primary Insurance: MEDICARE A & B Discharge Planning Comments: CM met with patient to complete initial dc planning assessment. CM educated patient on the CM role and verbal consent given by patient to complete assessment. Patient lives at home with her spouse. At discharge patient plans to return and feels this is a safe discharge. CM discussed availability of home health, rehab services, and medical equipment. Patient states that she just completed OP PT at [facility] and if Dr. Carrero wants her to continue them, she would like it set up at [facility]. She states if she needs a CPM, she will use whoever Dr. Carrero used before and his number is [phone]. CM will continue to follow and will assist as needed with dc plans/needs. Hog Stomach Preparer: Isha Julian DCPIA - Discharge Planning Initial Assessment Updated by [email or web address]: Isha Julian on 06/12/19 4:46 pm * Is the patient Alert and Oriented? Yes * PCP Dr. Johansen * Pharmacy [facility] [address] * Preadmission Environment Home with Family * ADLs Partial Dependent * Partial ADLs (Assistance needed) Ambulation * Equipment Cane Walker * List name and contact numbers for known caregivers / representatives who currently or will assist patient after discharge: Zack Granados - - [phone] Manisha Spencer - [phone] * Verbal permission to speak to the caregivers and representatives has been obtained from the patient. Yes * Community resources currently utilized Other * Please name any agencies selected above. Just completed OP PT at [facility] * Additional services required to return to the preadmission environment? Yes * Can the patient safely return to the preadmission environment? Yes * Has this patient been hospitalized within the prior 30 days at any hospital? No Coverage Notice Reviewer: [email or web address] - Isha Julian Notice Issued Date-Time: 06/13/2019 8:26 Notice Type: IM Discharge Notice Notice Delivered To: Patient Relationship to Patient: Self Electric Car Operator Name: Delivery Method: HAND - Hand Delivered Julia Days: Prior Verbal Notification: Recipient Understood Notice: Yes Recipient Signature: Yes Med Rec Note Co-signed by Attending: Coverage Notice Comment: IMM explained, signed, given, placed in MR Last DP export: 06/13/19 7:31 Patient Name: DAVIN GRANADOS Page [id number] at 1546 All edits/amendments must be made on the electronic document DICTATION DATE: 06/14/191545 MANUFACTURING TEAM MEMBER: CORNEL 06/14/191545 RPT#: [id number] DC DATE:06/13/19 STATUS: DIS IN [facility] [address] [place] [address] END OF REPORT
== END 2019-06-13 12:53 | disposition home or self-care (01) | DRG 488 ==
LOC: D.OPS 13:50 → D.MS 20:31
PROVIDERS: Anesthesiology; Family Medicine; ADMIT Orthopaedic Surgery; ATTEND Orthopaedic Surgery
PROC: 0JDP0ZZ Extraction of Left Lower Leg Subcutaneous Tissue and Fascia, Open Approach (ICD-10-PCS; 2019-06-10)
PROC: 0SPD09Z Removal of Liner from Left Knee Joint, Open Approach (ICD-10-PCS; principal; 2019-06-10 16:30)
PROC: 0SUW09Z Supplement Left Knee Joint, Tibial Surface with Liner, Open Approach (ICD-10-PCS; 2019-06-10 16:30)
DX: T84.84XA Pain due to internal orthopedic prosthetic devices, implants and grafts, initial encounter (principal); D62 Acute posthemorrhagic anemia; N17.9 Acute kidney failure, unspecified; T84.89XA Other specified complication of internal orthopedic prosthetic devices, implants and grafts, initial encounter; I48.91 Unspecified atrial fibrillation; Z95.2 Presence of prosthetic heart valve; L71.9 Rosacea, unspecified

== ENCOUNTER → 2020-05-18 09:22 | Outpatient (CLI) | payer MEDICARE, OTHER ==
[2019-06-11 03:20] VITALS: BMI 27.5
[~2020-05-18 09:22] MED LIST changes: +ASPIRIN325 MG PO; +SULFAMETHOXAZOL1 TA2 PO
== END | disposition home or self-care (01) ==
LOC: D.HCCECHO 09:22
PROVIDERS: ATTEND Internal Medicine Cardiovascular Disease
DX: Z95.4 Presence of other heart-valve replacement (principal)